=== PATIENT | male | born 1970 | race Caucasian/White ===

== ENCOUNTER 2024-08-31 07:21 | Day surgery (SDC) | payer OTHER, SELFPAY ==
[2024-08-27 10:03] VITALS: BMI 27.5
[2024-08-31 08:08] VITALS: BMI 27.1
--- NOTE | 2024-08-31 08:19 | HO.ANESPROP2 ---
[facility] Past Medical History Medical History Neuropathy GERD (gastroesophageal reflux disease) Depression Asthma Psoriatic arthritis HTN (hypertension) Anemia Diverticulosis Surgical History Surgical History History of excision of mass Hx of knee surgery History of back surgery History of esophagogastroduodenoscopy (EGD) H/O colonoscopy History of Problems with Anesthesia: No Social History Social History Are you a primary respiratory care specialist to a significant other at home: No Patient Tobacco Use Status: Former Tobacco user Tobacco use type: Cigarette Meds Allergies Allergy/AdvReac Type Severity Reaction Status Date / Time banana [Banana] Allergy Mild HIVES Verified 08/31/24 08:06 lisinopril [LISINOPRIL] Allergy Unknown ANGIOEDEMA Verified 08/31/24 08:06 Home Medications ?Medication ?Instructions ?Recorded ?Confirmed ?Last Taken ?Type Dupixent Syringe 08/27/24 08/16/24 History albuterol sulfate 90 mcg/actuation 2 puff inhalation Q4-6H PRN 08/27/24 08/27/24 Unknown History aerosol inhaler (Ventolin HFA) Shortness Of Breath Or Wheezing amlodipine 5 mg tablet 5 mg PO DAILY 08/27/24 08/27/24 Unknown History duloxetine 60 mg capsule,delayed 60 mg PO DAILY 08/27/24 08/27/24 Unknown History release sprinkle gabapentin 300 mg capsule 300 mg PO DAILY 08/27/24 08/27/24 Unknown History metoprolol tartrate 50 mg tablet 50 mg PO DAILY 08/27/24 08/27/24 Unknown History montelukast 10 mg tablet 10 mg PO BEDTIME 08/27/24 08/27/24 Unknown History Exam Height,Weight and Vital Signs: Height 5 ft 8 in Weight 80.739 kg Airway Mallampati Class: III TM Dist: >3cm Neck ROM: Full Loose/Missing/Broken Teeth: No Heart: RRR Lungs: CTA Assessment and Plan Assessment Anesthesia Assessment: Anesthesia Plan Discussed and Chart Reviewed Final Anesthetic Review History of Problems with Anesthesia: No NPO: Yes ASA Class: II Final Preanesthetic Review: Meds/Allgs Chart Reviewed, Consent Obtained/Reviewed and Anes Risks/Benef Reviewed Patient Risk: Low Procedure Risk: Low Anesthetic Plan Anesthetic Plan: MAC: Disposition: Standard PACU
[2024-08-31 08:36] VITALS: BP 136/91; PULSE 110; RESP 14; TEMP 36.7; O2SAT 96
[2024-08-31] MEDS: Lactated Ringers 1,000 ML 80 ML IVCONT (08:39)
--- NOTE | 2024-08-31 08:59 | P.HPSUR_ITS ---
Pre-Procedural Eval Section A - 24 Hr Update-Section A only Date of Service: 08/31/24 Section B - Complete if H&P > 30 days Chief Complaint: screening Details of Present Illness: see h&p no changes Relevant Social History: None Present Medications: None Medical History: No relevant PMH History of Previous Operations: No relevant previous surgery Allergies: Allergies Allergy/AdvReac Type Severity Reaction Status Date / Time banana [Banana] Allergy Mild HIVES Verified 08/31/24 08:06 lisinopril [LISINOPRIL] Allergy Unknown ANGIOEDEMA Verified 08/31/24 08:06 Review of Systems Sugical H&P ROS: Negative: Constitution, Cardiovascular, Respiratory, Neurologic al, Psychiatric, Hem-Onc, Allergic/Immunologic, Gastrointestinal, Genitourinary, Musculoskeletal, Integumentary, Endocrine and Eyes/Ears/Nose/Throat Exam Surgical H&P Exam: Normal: HEENT, Normal: Heart, Normal: Lungs, Normal: Extremities, Normal: Abdomen, Normal: Skin and Normal: Neurological Plan Diagnosis/Plan: Unchanged I have reviewed the history and physical and performed a pertinent physical examination on my patient. No changes have occurred unless specified. Time Spent With Patient Time: Total time managing care of this patient today ____ minutes.
[2024-08-31 09:40] VITALS: BP 111/64; PULSE 107; RESP 18; TEMP 36.2; O2SAT 97
[2024-08-31 09:58] VITALS: BP 121/76; PULSE 88; RESP 18; TEMP 36.2; O2SAT 97
--- NOTE | 2024-08-31 10:12 | OP_ITS ---
DATE OF SERVICE: 08/31/2024 SURGEON: Anthony San MD INDICATIONS: Colon cancer screening. PREOPERATIVE DIAGNOSIS: POSTOPERATIVE DIAGNOSIS: PROCEDURE PERFORMED: Colonoscopy to the terminal ileum with snare polypectomy. ESTIMATED BLOOD LOSS: COMPLICATIONS: ANESTHESIA: Monitored anesthesia care. ASSISTANTS: SPECIMENS: DESCRIPTION OF PROCEDURE: History and physical was performed. The risks and benefits of the procedure were explained to the patient. Informed consent was obtained. The patient was placed in the left lateral decubitus position. A digital rectal exam was performed and was found to be normal. The Olympus pediatric video colonoscope was introduced into the rectum and advanced to the cecum. The cecum was identified by transillumination, palpation, and identification of ileocecal valve. Examination was performed. The scope was removed. He tolerated the procedure well and was taken to recovery in stable condition. FINDINGS: On the ileocecal valve was a 10 mm sessile polyp, which was removed with a snare and recovered via suction and by grasping with the snare and removing from the patient. No other polyps were identified. The quality of the prep was good. There was mild sigmoid diverticulosis. Retroflexed examination showed some small internal hemorrhoids. IMPRESSION: Colon polyp. RECOMMENDATIONS: Follow up with the biopsy results. MD GILDARDO Valencia/PHYLLISL / [id number]
== END 2024-08-31 10:47 | disposition home or self-care (01) ==
PROVIDERS: PCP Family Medicine; Visit Provider Internal Medicine Gastroenterology
PROC: 0DJD8ZZ Inspection of Lower Intestinal Tract, Via Natural or Artificial Opening Endoscopic (ICD-10-PCS; CPT 45378; principal; 2024-08-31 09:10)
DX: Z12.11 Encounter for screening for malignant neoplasm of colon (principal); D12.0 Benign neoplasm of cecum; K57.30 Diverticulosis of large intestine without perforation or abscess without bleeding; K64.8 Other hemorrhoids; K21.9 Gastro-esophageal reflux disease without esophagitis; D64.9 Anemia, unspecified; I10 Essential (primary) hypertension; G62.9 Polyneuropathy, unspecified; R73.9 Hyperglycemia, unspecified; J45.909 Unspecified asthma, uncomplicated; L40.50 Arthropathic psoriasis, unspecified; F32.A Depression, unspecified; Z79.899 Other long term (current) drug therapy; Z88.8 Allergy status to other drugs, medicaments and biological substances; Z98.890 Other specified postprocedural states; Z87.891 Personal history of nicotine dependence
CPT/HCPCS: 45385; 88305; J2003; J2250; J2704

== ENCOUNTER 2024-09-12 02:04 | Inpatient (IN) | payer OTHER, SELFPAY ==
[2024-09-12] VITALS (16 sets, daily range): BP systolic 103–192; BP diastolic 60–103; PULSE 76–125; RESP 16–22; TEMP 36.1–37.8; O2SAT 94–100; BMI 28.1
--- NOTE | ~2024-09-12 | CT_ITS ---
CLINICAL HISTORY: diffuse abd pain, worse epigastric CT abdomen and pelvis with contrast Comparison: None Findings: The lung bases are clear. There is marked pericholecystic edema, possible cholecystitis. Solid organs are within normal limits. No renal stones. No bowel obstruction, pneumoperitoneum, or pneumatosis. Pelvic contents unremarkable. Normal appendix. The bones are intact. IMPRESSION: Possible acute cholecystitis. Clinically appropriate follow-up recommended. This document has been electronically signed by: Pablo Sierra MD on 09/12/2024 06:05:02
--- NOTE | 2024-09-12 02:27 | ECG_ITS ---
Test Reason : abd pain Blood Pressure : */* mmHG Vent. Rate : 73 BPM Atrial Rate : 73 BPM P-R Int : 158 ms QRS Dur : 82 ms QT Int : 402 ms P-R-T Axes : 57 49 48 degrees QTcB Int : 442 ms Normal sinus rhythm Normal ECG When compared with ECG of 03-Dec-2005 07:29, No significant change was found Referred By: Generic ED Physician Electronically Signed By: DANAE STAFFORD MD
[2024-09-12 02:54] LABS: Basophils Absolute Auto 0.1 X10*3/uL (0.0-0.2); Basophils Percent Auto 0.4 % (0-2); Eosinophils Percent Auto 0.2 % (0-4); Hematocrit 44.7 % (42.0-52.0); Hemoglobin 16.2 g/dl (14.0-18.0); Imm Gran Abs Auto 0.12 X10*3/uL (0.00-0.03); Imm Gran Pct Auto 0.7 % (0.0-0.4); Lymphocytes Absolute Auto 0.7 X10*3/uL (1.2-4.9); Lymphocytes Percent Auto 4.1 % (20-40); MANUAL DIFF FLAG NO; Mean Corpuscular HGB Conc 36.2 g/dl (31.0-36.0); Mean Corpuscular Hemoglobin 31.7 pg (27.0-33.0); Mean Corpuscular Volume 87.5 fL (80.0-98.0); Mean Platelet Volume 10.8 fL (9.4-12.4); Monocytes Absolute Auto 1.3 X10*3/uL (0.1-1.2); Monocytes Percent Auto 6.9 % (2-11); Neutrophils Absolute Auto 15.9 x10*3/uL (2.0-8.3); Neutrophils Percent Auto 87.7 % (45-73); Platelet Count 255 X10*3/uL (160-400); Red Blood Count 5.11 X10*6/uL (4.60-5.80); Red Cell Distribution Width 12.2 % (11.0-16.0); White Blood Count 18.1 X10*3/uL (4.8-10.8)
[2024-09-12 03:12] LABS: Troponin-I High Sensitivity 5.9 ng/L (<3.5-35.0)
[2024-09-12 03:15] LABS: Alanine Aminotransferase 22 U/L (0-40); Anion Gap 23 (12-20); Aspartate Amino Transferase 35 U/L (5-37); Bilirubin Direct 0.2 mg/dL (0.0-0.5); Bilirubin Total 1.1 mg/dL (0.0-1.0); Blood Urea Nitrogen 13 mg/dL (9-16); Calcium 10.8 mg/dL (8.4-10.2); Carbon Dioxide 18 mmol/L (22-29); Chloride 102 mmol/L (96-108); Creatinine Clr Calc Pharmacy 111.4; Estimated Glomerular Filt Rate > 60; Glucose Random 174 mg/dL (60-115); Lipase 22 U/L (8-78); Potassium 3.8 mmol/L (3.3-5.1); Sodium 139 mmol/L (135-145)
[2024-09-12 03:30] LABS: Influenza A PCR NEGATIVE (Negative); Influenza B PCR NEGATIVE (Negative); Resp Syncy Virus RNA Qual PCR NEGATIVE (Negative); SARS COV2 PCR INHOUSE NEGATIVE (Negative)
[2024-09-12 03:51] LABS: Alkaline Phosphatase 66 U/L (39-117)
--- OUTSIDE RECORDS SUMMARY | 2024-09-12 04:44 | XMS_ITS ---
Author Organization [facility] Address [address] [place] [address] Care Team Providers Care Drafter Electromechanical Name Role Phone Prince DA SILVA, Pat Primary Care Provider Kelli Tubbs Unavailable [phone] REASON FOR VISIT cx 09/01/24 appt Encounters Encounter Location Date Provider Diagnosis [facility] [address] [place] [address] 08/31/2024 Kelli Wise Plan Of Treatment No Information Progress Notes * Pablo SCOTT RDOB:[birth year] (54 yo M)Acc No.[id number]:08/31/2024 Patient:?Pablo CSOTT :1970???Age:54 Y???Sex:Male Address:[address] [place], [place] [address], [address] * * Date:?
--- OUTSIDE RECORDS SUMMARY | 2024-09-12 04:45 | XMS_ITS | Patient Health Record ---
[facility] [place] Address [address] [facility] [place] [address] Care Team Providers Care Platform Software Engineer Name Role Phone Pat Morrison MD Primary Care Provider Kelli Tubbs Unavailable [phone] Allergies Allergen (clinical drug ingredient) Drug/Non Drug Allergy documented on EMR Reaction Allergy Type Onset Date Status lisinopril Lisinopril Angiodema Drug Allergy Activ e Reason For Referral No Information Medications Medication SIG (Take, Route, Frequency, Duration) Notes Start Date End Date Status Gabapentin 300 MG 1 capsule Orally Twi ce a day for 90 days Active Clobetasol Propionate 0.05 % External for 25 Days Not-Aaron ing Mometasone Furoate 0.1 % External for 30 Days Not-Taking Metoprolol Tartrate 50 MG Oral for 90 Active Omeprazole 20 MG 1 capsule 30 minutes before morning meal Orally Once a day for 30 day(s) Not-Taking DULoxetine HCl 60 MG Oral for 90 Active Qvar RediHaler 80 MCG/ACT Inhalation for 90 Not-Taking amLODIPine Besylate 5 MG Oral for 90 Active Dupixent 300 MG/2ML Subcutaneous for 28 Not-Taking Carisoprodol 350 MG (Schedule IV Drug) O ral for 30 Not-Taking Montelukast Sodium 10 MG 1 tablet Orally Once a day Active Montelukast Sodium 10 MG Oral for 90 Not-Taking Albuterol Sulfate HFA 108 (90 Base) MCG/ACT Inhalation for 25 N ot-Taking Dupixent Active Tacrolimus 0.1 % External for 30 Days Not-Taking traMADol HCl 50 MG Oral for 3 Days Not-Taking Social History Tobacco Use: Social History Observation Description Date Details (start date - stop date) Former Smoker NA - NA Tobacco Use/Smoking Question Answer Notes Are you a: former smoker Additional Findings: Tobacco Non-User Current no n-smoker Alcohol Screen Question Answer Notes Did you have a drink contain ing alcohol in the past year? Yes How often did you have a dri nk containing alcohol in the past year? Monthly or less (1 point) Points 1 Interpretation Negative Tobacco use other than smoking: Question Answer Notes Are you an other tobacco user? No Problems Problem Type SNOMED Code ICD Code Onset Dates Problem Status W/U Status Risk Notes Problem Acquired hammer toe of right foot (7755487601994497) Other hammer toe(s) (acquired), right foot (M20.41) Active confirmed Problem Acquired hammer toe of left foot (5255484946388492) Other hammer toe(s) (acquired), left foot (M20.42) Active confirmed Problem 887822707 Fibromyalgia (M79.7) Active confirmed Problem 608942148 Hallux rigidus of right foot (M20.21) Active confirmed Problem 944254511 Neuropathy (G62.9) Active confirmed Problem Localized, primary osteoarthritis of the ankle and/or foot (236956790) Arthritis of joint of lesser toe, left (M19.072) Active confirmed Problem Localized, primary osteoarthritis of the ankle and/or foot (909124289) Arthritis of joint of lesser toe, right (M19.071) Active confirmed Vital Signs Blood pressure diastolic 80 mm Hg 02/10/2024 Height 5ft8in in 02/10/2024 Blood pressure systolic 120 mm Hg 02/10/2024 Weight 185 lbs 02/10/2024 BMI 28.13 kg/m2 02/10/2024 Encounters Encounter Location Date [facility] [address] [place] [address] 01/06/2024 Kelli Wise Pain in right toe(s) M79.674 ; Other hammer toe(s) (acquired), right foot M20.41 ; Pain in left toe(s) M79.675 ; Other hammer toe(s) (acquired), left foot M20.42 ; Hallux rigidus of right foot M20.21 ; Neuropathy G62.9 ; Pes planus of left foot M21.42 ; Pes planus of right foot M21.41 and Fibromyalgia M79.[address] [address] 02/10/2024 Kelli Wise Other hammer toe(s) (acquired), right foot M20.41 ; Neuropathy G62.9 ; Pain in right toe(s) M79.674 ; Pain in left toe(s) M79.675 ; Other hammer toe(s) (acquired), left foot M20.42 ; Hallux rigidus of right foot M20.21 ; Pes planus of left foot M21.42 ; Pes planus of right foot M21.41 and Fibromyalgia M79.[address] [address] 08/31/2024 Kelli Wise Assessments Encounter Date Diagnosis (ICD Code) Assessment Notes Treatment Notes Treatment Clinical Notes Section Notes 01/06/2024 Other hammer toe(s) (acquired), right foot (ICD-10 - M20.41) 01/06/2024 Pain in right toe(s) (ICD-10 - M79.674) 02/10/2024 Other hammer toe(s) (acquired), right foot (ICD-10 - M20.41) 02/10/2024 Neuropathy (ICD-10 - G62.9) 02/10/2024 Pain in right toe(s) (ICD-10 - M79.674) 01/06/2024 Pain in left toe(s) (ICD-10 - M79.675) 01/06/2024 Other hammer toe(s) (acquired), left foot (ICD-10 - M20.42) 02/10/2024 Pain in left toe(s) (ICD-10 - M79.675) 02/10/2024 Other hammer toe(s) (acquired), left foot (ICD-10 - M20.42) 01/06/2024 Hallux rigidus of right foot (ICD-10 - M20.21) 01/06/2024 Neuropathy (ICD-10 - G62.9) 02/10/2024 Hallux rigidus of right foot (ICD-10 - M20.21) 02/10/2024 Pes planus of left foot (ICD-10 - M21.42) 01/06/2024 Pes planus of left foot (ICD-10 - M21.42) 01/06/2024 Pes planus of right foot (ICD-10 - M21.41) 02/10/2024 Pes planus of right foot (ICD-10 - M21.41) 02/10/2024 Fibromyalgia (ICD-10 - M79.7) 01/06/2024 Fibromyalgia (ICD-10 - M79.7) Plan Of Treatment Pending Test Test Name Order Date X ray : Foot, left 3V 01/06/2024 X ray : Foot, right 3V 01/06/2024 Insurance Providers Payer Name Payer Address Payer Phone Subscriber Number Group Number Insured Name Patient Relationship to Insured Coverage Start Date Coverage End Date [facility] [address] [address] [place] [address] [phone] [id number] Pablo Scott Self - patient is the insured Medical (General) History Medical History History ICD Code Arthritis asthma Back,Hip,and Knee pain Fibromyalgia High blood pressure Numbness Psoriasis/eczema Reflux Transfusions Joint implants/screws Surgical History Surgery Date(Month/Year) knee recronstruction left 1989 knee surgery Right, multiple Arthroscopi c, arthritis 1996/2011/2012 back surgery, L4, L5 2006 Rib Surgery, removal 2005 Hand Surgery Left 2010 right knee replacement 2012 umbilical hernia repair 2018 Cut Mouth eating went for Sutures 03/2020
--- OUTSIDE RECORDS SUMMARY | 2024-09-12 04:45 | XMS_ITS ---
Author Organization [facility] Address [address] [place] [address] Care Team Providers Care Rail Transportation Tabeler Name Role Phone Pat Morrison MD Primary Care Provider Unavailab Anthony Pichardo Jr Unavailable [phone] REASON FOR VISIT screening Encounters Encounter Location Date Provider Diagnosis [facility] [address] [place], [place] [id number] 08/31/2024 Anthony San Jr Colon cancer screening Z12.11 and Colon polyps K63.5 ASSESSMENTS Encounter Date Diagnosis Assessment Notes Treatment Notes Treatment Clinical Notes 08/31/2024 Colon cancer screening (ICD-10 - Z12.11) 08/31/2024 Colon polyps (ICD-10 - K63.5) PLAN OF TREATMENT No Information
--- OUTSIDE RECORDS SUMMARY | 2024-09-12 04:45 | XMS_ITS ---
Author Organization [facility] Address [address] [place] [address] Care Team Providers Care Assistant Press Operator Offset Name Role Phone Pat Morrison MD Primary Care Provider Unavailab Anthony Pichardo Jr Unavailable REASON FOR VISIT pathology Encounters Encounter Location Date Provider Diagnosis [facility] [address] [place] [address] 09/08/2024 Anthony San Jr PLAN OF TREATMENT No Information
--- OUTSIDE RECORDS SUMMARY | 2024-09-12 04:45 | XMS_ITS ---
Author Organization [facility] Address [address] [place] [address] Care Team Providers Care Assistant Product Manager Name Role Phone Prince DA SILVA, Pat Primary Care Provider Kelli Tubbs [phone] Encounters Encounter Location Date Provider Diagnosis [facility] [address] [place] [address] 09/01/2024 Kelli Wise Plan Of Treatment No Information Progress Notes * Pablo SCOTT RDOB:[birth year] (54 yo M)Acc No.[id number]:09/01/2024 Progress Note Patient:?Pablo SCOTT Provider:?Kelli Wise DPM :1970???Age:54 Y???Sex:Male Anton e:09/01/2024 Address:[address] [place] [address] [facility] Pcp:Pat Morrison MD Subjective: * Chief Complaints: * ??? * Medical History:? Objective: * Vitals:? Assessment: Plan: * Treatment: * Images: * The named appointment provid er may or may not be the originator of this progress note, and it is not deemed complete until electronically signed by the appointment provider. Sign off status: Pending * Provider:Denisha Wise DPM Date:? Generated for Tegan serrato/Dayne/eTransmitting on:?09/12/2024 04:45 AM EST
--- OUTSIDE RECORDS SUMMARY | 2024-09-12 04:45 | XMS_ITS ---
[facility] Address [address] [place] [address] Care Team Providers Care Supervisor [employer] Name Role Phone Prince DA SILVA Pat Primary Care Provider Kelli Tubbs Unavailable [phone] Allergies Allergen (clinical drug ingredient) Drug/Non Drug Allergy documented on EMR Reaction Allergy Type Onset Date Status lisinopril Lisinopril Angiodema Drug Allergy Activ e REASON FOR VISIT Pcp-10/11, Pcp-11/08, Painful Toe(s) Medications Medication SIG (Take, Route, Frequency, Duration) Notes Start Date End Date Status Omeprazole 20 MG 1 capsule 30 minutes before morning meal Orally Once a day for 30 day(s) Not-Taking DULoxetine HCl 60 MG Oral for 90 Active Montelukast Sodium 10 MG 1 tablet Orally Once a day Active Gabapentin 300 MG 1 capsule Orally Twi ce a day for 90 days Active Dupixent Active Qvar RediHaler 80 MCG/ACT Inhalation for 90 Not-Taking Dupixent 300 MG/2ML Subcutaneous for 28 Not-Taking Carisoprodol 350 MG (Schedule IV Drug) O ral for 30 Not-Taking Montelukast Sodium 10 MG Oral for 90 Not-Taking Albuterol Sulfate HFA 108 (90 Base) MCG/ACT Inhalation for 25 N ot-Taking Clobetasol Propionate 0.05 % External for 25 Days Not-Aaron ing Mometasone Furoate 0.1 % External for 30 Days Not-Taking Metoprolol Tartrate 50 MG Oral for 90 Active Tacrolimus 0.1 % External for 30 Days Not-Taking traMADol HCl 50 MG Oral for 3 Days Not-Taking amLODIPine Besylate 5 MG Oral for 90 Active Social History Tobacco Use: Social History Observation [...] Are you an other tobacco user? No Vital Signs Blood pressure systolic 120 mm Hg 02/10/20 24 Blood pressure diastolic 80 mm Hg 024 Height 5ft8in in 02/10/2024 Weight 185 lbs 02/10/2024 BMI 28.13 kg/m2 02/10/2024 Encounters Encounter Location Date Provider Diagnosis [facility] [place] [address] [place] [address] 02/10/2024 Kelli Wise Other hammer toe(s) (acquired), right foot M20.41 ; Neuropathy G62.9 ; Pain in right toe(s) M79.674 ; Pain in left toe(s) M79.675 ; Other hammer toe(s) (acquired), left foot M20.42 ; Hallux rigidus of right foot M20.21 ; Pes planus of left foot M21.42 ; Pes planus of right foot M21.41 and Fibromyalgia M79.7 Assessments Encounter Date Diagnosis (ICD Code) Assessment Notes Treatment Notes Treatment Clinical Notes Section Notes 02/10/2024 Other hammer toe(s) (acquired), right foot (ICD-10 - M20.41) 02/10/2024 Neuropathy (ICD-10 - G62.9) 02/10/2024 Pain in right toe(s) (ICD-10 - M79.674) 02/10/2024 Pain in left toe(s) (ICD-10 - M79.675) 02/10/2024 Other hammer toe(s) (acquired), left foot (ICD-10 - M20.42) 02/10/2024 Hallux rigidus of right foot (ICD-10 - M20.21) 02/10/2024 Pes planus of left foot (ICD-10 - M21.42) 02/10/2024 Pes planus of right foot (ICD-10 - M21.41) 02/10/2024 Fibromyalgia (ICD-10 - M79.7) Plan Of Treatment Medication Medication Name Sig Start Date Stop Date Notes Gabapentin 300 MG 1 capsule Orally Twice a day for 90 days Next Appt Details Follow Up: 6 Months, Reason: Progress Notes * Pablo SCOTT RDOB:[birth year] (53 yo M)Acc No.[id number]:02/10/2024 Progress Notes Patient:?Pablo Scott Provider:?Kelli Wise DPM :1970???Age:53 Y???Sex:Male Anton e:02/10/2024 Address:[address] [place] [address] [id number] Pcp:Pat Morrison MD Subjective: * Chief Complaints: * ???Pcp-10/11Pcp-11/08Painful Toe(s) * HPI: ???Toe pain:?Nature:?tenderness throbbing burning numbness.?Location:?2-5 B/L feet; R>L.?Duration:?a year or more.?Onset/Cause:?gradual unknown denies trauma.?Course:?some improvement.?Aggrevated by:?standing/walking job/occupation.?Treatments:?rest/alter normal daily activity, change in shoes, innersoles, Gabapentin 300mg once a day.? * ROS:?General/Constitutional:?Nausea?denies, denies.?Vomiting?denies, denies.?Hunger Thirst?denies, denies.?Loss appetite?denies, denies.?Chills?denies, denies.?Fatigue?denies, denies.?Fever?denies, denies.?Night Sweats denies, denies.?Unexplained weight loss?denies, denies.?Unexplained weight gain?denies, denies.?HEENTM:?Dentures?denies, denies.?Dizziness?denies, denies.?Glasses/contacts?admits, admits.?Retinopathy?denies, denies.?Blurred/double vision?denies, denies.?TMJ?denies, denies.?Discharge/drainage?denies, denies.?Implants?denies, denies.?Sore throat?denies, denies.?Dental implants?denies, denies.?Hard of hearing ?denies, denies.?Difficulty chewing/swallowing/speaking?denies, denies.?Nose bleeds?denies, denies.?Sore mouth?denies, denies.?Respiratory:?On Oxygen?denies, denies.?Pneumonia/pleurisy?denies, denies.?Bronchitis?denies, denies.?Emphysema?denies, denies.?Coughing?denies, denies.?Cough blood?denies, denies.?Shortness of breath?denies, denies.?Wheezing?denies, denies.?Cardiovascular:?Pacemaker?denies, denies.?MVP?denies, denies.?WPW?denies, denies.?CHF?denies, denies.?Heart attack?denies, denies.?Septal defect?denies, denies.?Rapid beat?denies, denies.?Chest pain ?denies, denies.?Atrial Fib.?denies, denies.?Murmur/Palpitations?denies, denies.?Gastrointestinal:?Hemorrhoids?denies, denies.?Stomach/Abdominal pain?denies, denies.?Dark blood stool?denies, denies.?Irritable bowel ?denies, denies.?Constipation?denies, denies.?Diarrhea?denies, denies.?Hematology:?Swelling?denies, denies.?Clots?denies, denies.?Varicose Veins?denies, denies.?Bruising?denies, denies.?Bleeding problem?denies, denies.?Genitourinary:?Blood urine?denies, denies.?Frequent/Painfu/urination/bladder control?denies, denies.?Kidney stones?denies, denies.?Infection (UTI)?denies, denies.?Nephropathy?denies, denies.?sex trans dis (STD)?denies, denies.?Prostate?denies, denies.?Musculoskeletal:?Hammertoes?admits, admits.?Bunions?admits, admits.?Back Pain?denies, denies.?Muscle Cramps/ Resting?denies, denies.?Muscle cramps / walking?denies, denies.?Generalized aches and pains?admits, admits.?Weakness?denies, denies.?Integ.:?Roy?denies, denies.?Scars?denies, denies.?Corns/calluses?denies, denies.?Ingrown nails?denies, denies.?Painful nails?denies, denies.?Open Sores?denies, denies.?Rashes?denies, denies.?Neurologic:?Difficulty sleeping?denies, denies.?Brain disorder?denies, denies.?Numbness?admits, admits.?Balance trouble?denies, denies.?Confusion?denies, denies.?Fainting/blackouts?denies, denies.?Tingling?admits, denies.?Tremors?denies, denies.? * Medical History:? * Surgical History:?knee recro nstruction left 1989knee surgery Right, multiple Arthroscopic, arthritis 1996/2011/2013back surgery, L4, L5 2006Rib Surgery, removal 2005Hand Surgery Left 2010right knee replacement 2013umbilical hernia repair 2019Cut Mouth eating went for Sutures 03/2020 * Hospitalization/Major Diagno stic Procedure:?Denies Past Hospitalization * Family History:?Mother: juanita eaton, diagnosed with Unspecified essential hypertension.?Father: alive, foot problems.?Maternal Grand Mother: diagnosed with Other malignant neoplasm of unspecified site. Siblings: diagnosed with Family history of arthritis.? Foot Problems: Father. * Social History:?Tobacco Use:?Tobacco Use/Smoking?Are you a:?former smoker ?Additional Findings: Tobacco Non-User?Current non-smoker ?Tobacco use other than smoking?Are you an other tobacco user??No ???Drugs/Alcohol:?Drugs?Have you used drugs other than those for medical reasons in the past 12 months??No ?Alcohol Screen?Did you have a drink containing alcohol in the past year??Yes ?How often did you have a drink containing alcohol in the past year??Monthly or less (1 point) ?Points?1 ?Interpretation?Negative ???Miscellaneous:?Caffeine: yes, frequency:, 3 cups per day. ?Children: yes, 2. ?Exercise: yes, work. ?Marital status: . 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 * Medications:?TakingDupixent Montelukast Sodium 10 MG Tablet 1 tablet Orally Once a dayDULoxetine HCl 60 MG Capsule Delayed Release Particles Oral amLODIPine Besylate 5 MG Tablet Oral Metoprolol Tartrate 50 MG Tablet Oral Gabapentin 300 MG Capsule 1 capsule Orally Once a day at nightTaking Dupixent Taking Montelukast Sodium 10 MG Tablet 1 tablet Orally Once a dayTaking DULoxetine HCl 60 MG Capsule Delayed Release Particles Oral Taking amLODIPine Besylate 5 MG Tablet Oral Taking Metoprolol Tartrate 50 MG Tablet Oral Taking Gabapentin 300 MG Capsule 1 capsule Orally Once a day at nightNot-Taking/PRNClobetasol Propionate 0.05 % Solution External Mometasone Furoate 0.1 % Ointment External Tacrolimus 0.1 % Ointment External traMADol HCl 50 MG Tablet Oral Albuterol Sulfate HFA 108 (90 Base) MCG/ACT Aerosol Solution Inhalation Carisoprodol 350 MG Tablet (Schedule IV Drug) Oral Montelukast Sodium 10 MG Tablet Oral Qvar RediHaler 80 MCG/ACT Aerosol Breath Activated Inhalation Dupixent 300 MG/2ML Solution Prefilled Syringe Subcutaneous Omeprazole 20 MG Capsule Delayed Release 1 capsule 30 minutes before morning meal Orally Once a dayMedication List reviewed and reconciled with the patientNot-Taking/PRN Clobetasol Propionate 0.05 % Solution External Not-Taking/PRN Mometasone Furoate 0.1 % Ointment External Not-Taking/PRN Tacrolimus 0.1 % Ointment External Not-Taking/PRN traMADol HCl 50 MG Tablet Oral Not-Taking/PRN Albuterol Sulfate HFA 108 (90 Base) MCG/ACT Aerosol Solution Inhalation Not-Taking/PRN Carisoprodol 350 MG Tablet (Schedule IV Drug) Oral Not-Taking/PRN Montelukast Sodium 10 MG Tablet Oral Not-Taking/PRN Qvar RediHaler 80 MCG/ACT Aerosol Breath Activated Inhalation Not-Taking/PRN Dupixent 300 MG/2ML Solution Prefilled Syringe Subcutaneous Not-Taking/PRN Omeprazole 20 MG Capsule Delayed Release 1 capsule 30 minutes before morning meal Orally Once a dayMedication List reviewed and reconciled with the patient * Allergies:?Lisinopril: Angio demayes[Allergies Verified] Objective: * Vitals:?Ht: 5ft8in, Wt:185, BMI:28.13, Shoe size: 12-13, BP:120/80 mm Hg, Ht-cm: 172.72 cm, Wt-k.91 kg. * Examination: ???General Examination: ?GENERAL APPEARANCE:?Reveals a pleasant, alert, well-nourished, well- developed, well hydrated individual, who demonstrates proper attention to hygiene/body habitus, and is in no acute distress, Pt serves as own?historian for office visit today.?ORIENTED:?person, place, and time.?Neurological: ?SENSORY:? Neurological exam demonstrates reduced light touch sensation reduced sharp/dull pin prick discrimination reduced vibration sensation reduced proprioception sensation in a stocking fashion plantar aspects 5.07 monofilament test performed at plantar aspects of 5 varied sites per foot shows sensation reduced B/L Pt relates burning paresthesia hyperesthesia shooting/radiating sensation Forefoot B/L.?Vascular: ?DP PULSES:?3/4, B/L.?PT PULSES:?3/4, B/L.?CAPILLARY FILL TIME:?immediate, all digits, B/L.?SKIN TEMPERTURE GRADIENT OF THE LOWER EXTERMITIES:?warm to cool, proximal to distal, B/L.?HAIR GROWTH/TEXTURE/ELASTICITY/TURGOR:?normal, B/L.?PIGMENTATION:?normal, B/L.?EDEMA:?absent, B/L.?Dermatologic: ?SKIN FINDINGS:?Skin exam reveals normal texture, elasticity, and turgor. There are no masses. The interspaces are clear.?Orthopedic: ?MUSCLE STRENGTH:?5/5 all groups in a symmetrical fashion , B/L.?GAIT ABNORMALITY:? Pronated abducted angle and base of gate.?FOOT MORPHOLOGY:? Pes Planus structure Semi-rigid B/L.?BUNION:? Dorso-Medially prominent 1st MPJ Limited 1st MPJ Dorsal ROM RIGHT.?DIGITAL DEFORMITIES:? Digital contracture, PIPJ, 2-5 B/L, reducible with WB, or to push-up test, no over, nor underlapping.?FOOTWEAR:? shoe gear properties exacerbate patients foot/toe deformity.? Assessment: * Assessment: 1.?Other hammer toe(s) (acqu ired), right foot - M20.41?2.?Neuropathy - G62.9 (Primary)?3.?Pain in right toe(s) - M79.674?4.?Pain in left toe(s) - M79.675?5.?Other hammer toe(s) (acquired), left foot - M20.42?6.?Hallux rigidus of right foot - M20.21?7.?Pes planus of left foot - M21.42?8.?Pes planus of right foot - M21.41?9.?Fibromyalgia - M79.7? Plan: * Treatment: * Procedure Codes:? * Preventive Medicine:? ??Counseling:?Discussion:?-13: Office or other outpatient visit for the evaluation and management of an established patient, which required a medically appropriate history and/or examination and LOW level of DECISION MAKING for: 1 STABLE ACUTE UNCOMPLICATED PROBLEM, 2 OR MORE MINOR PROBLEMS, OR 1 STABLE CHRONIC PROBLEM, THAT POSE(S) A LOW RISK FOR MORBIDITY/MORTALITY. The visit on the day of the encounter encompassed interpreting the data and educating the patient as to the nature of their condition, treatment options available according to their individual PMH, meds, allergies, and overall health/living conditions, as well as any potential risks or complications that may occur from a failure to adhere to, and participate in, the recommended course of therapy. The discussion included a complete verbal, and/or written explanation of the examination results, any x-rays taken, the proposed diagnosis, and outline of the treatment plan. A schedule for future care needs was also explained. The patient verbalized an understanding of the instructions at this time and agreed to be an active participant in their treatment. If the patient should think of any questions or concerns after the visit, I have encouraged the patient to call the office.?Consult:?The Pt. was counseled on the diagnosis, treatment options, and the need for a, PCP Consult for referral to Neurology.?Digital Surgery:?Digital surgery was discussed with the patient, including the risks of surgery(below), vs not having surgery (persistent pain, deformity, risk for skin ulceration/infection, loss of toe), the potential surg complications, the anesthesia, and the usual post-op course. No guarentees were given. We discussed the potential procedure complications including, but not limited to: pain, swelling, bleeding, scarring, numbness, infection, delayed/non healing, floppy/unstable/shorthened toe, recurrence, failure of the procedure, overcorrection leading to plantarflexed/downward positioned toe, recurrence, need for further surgery, as well as the possibility for loss of the toe itself. We discussed the use of local anesthesia, and the usual post-op course for healing. No guarentees were given. The patient verbally indicated a full understanding of the above conversation, and any other of their questions were answered to their satisfaction. Alternatives to the procedure were also discussed, including conservative care. I also discussed the usual post-operative course and gave no guarantees regarding outcome.?Digital Treatment:?I explained to the patient the possible etiologies of Hammertoes, including genetics/foot type/shoegear/activity level/exercise routine and the risks/benefits of all the different treatment options for pain including: No treatment at all, Rest, Ice, New/supportive/wider/deeper Shoegear, Digital Padding/Strapping/Taping/Bracing/Gel protective sleeves, Foot/Ankle AFO Bracing, Stretching exercises, Deep Tissue Massage, Arch support/shoe inserts with splay metatarsal padding, and Custom orthoses. I insisted that any digital devices be removed daily and not worn overnight for safety. The patient is to carefully examine the toes daily for any skin irritation while using any splinting or padding device. The advantages and disadvantages of each option were discussed and the patients questions re: shoegear, padding, custom vs prefabricated inserts, activity level, and consistency in home treatment regimens for optimal success were answered to their verbally confirmed satisfaction.?Neuritis/Neuropathy:?The patient was counseled on the diagnosis, possible etiologies (including mechanical stress, injury, entrapment, chemotherapy, diabetes, vertebral disk herniation if hx), treatment options, and importance for adherence to recommendations in order to address the patients Neuritis/Neuropathy. The advantages and disadvantages re: Accomidative mechanical support/offloading, Topical vs PO analgesics including aspercream/Voltaren gel/Lidoderm patches/Neurontin/Lyrica along with their potential side effects were discussed with the patient to their satisfaction. Also discussed the use of therapeutic injectable cortisone if needed. Surgical treatment, if considered an option, was discussed as well. If surgery is warranted, we discussed the potential successful outcomes as well as the possible complications such as failure, painful scar, permanent tingling/numbness/neuralgea/or intractable pain. Patient questions re: medication use, dosage, and possible side effects and drug interactions were reviewed and the answers to each understood. If the condition worsens, the patient was instructed to contact the office for an appointment. The patient verbally confirmed a full understanding of the above, Discussed Neurontin, Discussed that neuropathy could be related to back arthritis/injury, recommend follow up with PCP.?Orthotics:?I explained to the patient the benefits of OT use. I explained that orthoses are medically necessary to decrease the foot pain through proper mechanical control, support of their foot.?Shoe Gear Counseling:?The patient and I reviewed the types of shoes they should be wearing. My recommendation included obtaining a well-fitted shoe with a good supportive, non-foldable nor twistable sole, plenty of toe/room for the forefoot, and proper arch support. Based on todays examination, I recommended the patient look for new shoes, by having their feet professionally measured. We discussed that generally the best time of the day for a shoe fitting is the afternoon. Different shoes types and brands to best match the patients occupation and vocation were discussed. Specific brand selection will be up to the patient, their individual foot condition/deformities, and fit. The patient and I reviewed the standard new shoe break in period by wearing them for a few hours a day while checking for redness or sores as wear time is increased. The patient verbally confirmed to understanding the information discussed.? * Follow Up:?6 Months * Images: * Sign off status: Completed true * Provider:?Kelli Wise DPM Date:? Generated for Tegan serrato/Dayne/Meg on:?09/12/2024 04:45 AM EST History and Physical Notes * HPI (History of Present Illness) Category Sub-Category Detail Notes Category Not es Toe pain Nature: tenderness throbbing burning numbness Location: 2-5 B/L feet; R>L Duration: a year or more Onset/Cause: gradual unknown lizzeth es trauma Course: some improvement Aggravated by: standing/walking job /occupation Treatments: rest/alter normal da rizwana activity, change in shoes, innersoles, Gabapentin 300mg once a day Examination Category Sub-Category Detail Notes Category Not es Neurological SENSORY: Neurological exa m demonstrates reduced light touch sensation reduced sharp/dull pin prick discrimination reduced vibration sensation reduced proprioception sensation in a stocking fashion plantar aspects 5.07 monofilament test performed at plantar aspects of 5 varied sites per foot shows sensation reduced B/L Pt relates burning paresthesia hyperesthesia shooting/radiating sensation Forefoot B/L Dermatologic SKIN FINDINGS: Skin exam reveal s normal texture, elasticity, and turgor. There are no masses. The interspaces are clear Orthopedic GAIT ABNORMALITY: Pronated abduc hoang angle and base of gate FOOT MORPHOLOGY: Pes Planus structure Semi-rigid B/L BUNION: Dorso-Medially promi nent 1st MPJ Limited 1st MPJ Dorsal ROM RIGHT FOOTWEAR: shoe gear properties exacerbate patients foot/toe deformity DIGITAL DEFORMITIES: Digital contracture , PIPJ, 2-5 B/L, reducible with WB, or to push-up test, no over, nor underlapping MUSCLE STRENGTH: 5/5 all groups in a symmetrical fashion , B/L General Examination GENERAL APPEARANCE: Reveals a pleasant, alert, well- nourished, well-developed, well hydrated individual, who demonstrates proper attention to hygiene/body habitus, and is in no acute distress, Pt serves as own historian for office visit today ORIENTED: person, place, and t yfn Vascular DP PULSES (B): 3/4, B/L PT PULSES (B): 3/4, B/L CAPILLARY FILL TIME: immediate, all digi ts, B/L TEMPERTURE GRADIENT (C): warm to cool, p roximal to distal, B/L TROPHIC CONDITION-TEXTURE/ELASTICITY/TURGOR/HAIR GROWTH (B): normal, B/L EDEMA (C): absent, B/L PIGMENTATION: normal, B/L
--- OUTSIDE RECORDS SUMMARY | 2024-09-12 04:45 | XMS_ITS | Patient Health Record ---
Author Organization [facility] Address [address] [place] [address] Care Team Providers Care Poultry Trimmer Name Role Phone Prince DA SILVA, Pat Primary Care Provider Anthony Benitez Jr Unavailable ALLERGIES Allergen (clinical drug ingredient) Drug/Non Drug Allergy documented on EMR Reaction Allergy Type Onset Date Status lisinopril Lisinopril Unknown Drug Allergy Activ e RESULTS Component Value Reference Range Notes Pathology Reviewed date:09/08/2024 07:56:36 AM Interpretation: Performing Lab:[facility], [address] [place] [id number] Notes/Report: REASON FOR REFERRAL No Information MEDICATIONS Medication SIG (Take, Route, Frequency, Duration) Notes Start Date End Date Status Gabapentin 300 MG Oral for 90 Active Dupixent 300 MG/2ML Subcutaneous for 28 Active DULoxetine HCl 60 MG Oral for 90 Active MiraLax (colon prep) 17 GM/SCOOP mixed with Gatorade or Crystal Light Orally begin at 5:00 p.m. the day before the procedure for 1 day 07/28/2024 Active Montelukast Sodium 10 MG Oral for 90 Active Metoprolol Tartrate 50 MG Oral for 90 Active Albuterol Sulfate HFA 108 (90 Base) MCG/ACT Inhalation for 25 Activ e amLODIPine Besylate 5 MG Oral for 90 Active SOCIAL HISTORY Tobacco Use: Social History Observation Description Date Details (start date - stop date) Former Smoker NA - NA Sex Assigned At : Social History Observation Description Sex Assigned At Unknown Tobacco Use/Smoking Question Answer Notes Patient is a former smoker How long has it been since you last smoked? > 10 years Alcohol Screen Question Answer Notes Did you have a drink contain ing alcohol in the past year? Yes How often did you have a dri nk containing alcohol in the past year? 2 to 4 times a month (2 points) How many drinks did you have on a typical day when you were drinking in the past year? 1 or 2 drinks (0 point) How often did you have 6 or more drinks on one occasion in the past year? Never (0 point) Points 2 Interpretation Negative PROBLEMS Problem Type ICD Code Onset Dates Problem Status W/U Status Risk SNOMED Code Notes Problem Colon cancer screening (Z12.11) Active confirmed 763406628 Problem Gastroesophageal reflux disease with esophagitis without hemorrhage (K21.00) Active confirmed 871958618 VITAL SIGNS Blood pressure diastolic 00 mm Hg 07/28/2024 Height 5 ft 8 in in 07/28/2024 Blood pressure systolic 00 mm Hg 07/28/2024 Weight 181 lbs 07/28/2024 BMI 27.52 kg/m2 07/28/2024 Encounters Encounter Location Date Provider Diagnosis [facility] [address], [place] [id number] 08/31/2024 Anthony San Jr Colon cancer screening Z12.11 and Colon polyps K63.5 [facility] [address] [place] [phone] 07/28/2024 Anthony San Jr Colon cancer screening Z12.11 and Gastroesophageal reflux disease with esophagitis without hemorrhage K21.00 [facility] [address] [facility] [place] [phone] 09/08/2024 Anthony San Jr ASSESSMENTS Encounter Date Diagnosis Assessment Notes Treatment Notes Treatment Clinical Notes 08/31/2024 Colon cancer screeni ng (ICD-10 - Z12.11) 08/31/2024 Colon polyps (ICD-10 - K63.5) 07/28/2024 Colon cancer screeni ng (ICD-10 - Z12.11) Colonoscopy material was printed 07/28/2024 Gastroesophageal reflux disease with esophagitis without hemorrhage (ICD-10 - K21.00) PLAN OF TREATMENT Future Test Test Name Order Date COLONOSCOPY 07/28/2024 Insurance Providers Payer Name Payer Address Payer Phone Subscriber Number Group Number Insured Name Patient Relationship to Insured Coverage Start Date Coverage End Date R [address] [address] [place] [address] [id number] ROSALIA PERALTA Self - patient is the insured MEDICAL (GENERAL) HISTORY Medical History History ICD Code Hypertension Psoriatic arthritis Asthma Gastroesophageal reflux disease Depression Elevated blood sugar Neuropathy Surgical History Surgery Date(Month/Year) Back surgery Knee surgery Rib excision, pathology benign
--- NOTE | 2024-09-12 05:25 | ED.ABDPAIN ---
HPI - Abdominal Pain General Chief Complaint: Abdominal Pain Stated Complaint: ABDOMINAL PAIN Time Seen by Provider: 09/12/24 05:18 Source: patient Mode of arrival: ambulatory Limitations: no limitations History of Present Illness ED Provider: Dr. Galina De Jesus HPI narrative: Patient comes to the emergency room complaining of epigastric pain, nausea vomiting diarrhea starting approximately 12 hours ago. Patient was given Zofran and aspirin by EMS. Patient complaining of diffuse abdominal pain but worse in the epigastric area. Related Data Home Medications ?Medication ?Instructions ?Recorded ?Confirmed Dupixent Syringe 08/27/24 albuterol sulfate 90 mcg/actuation 2 puff inhalation Q4-6H PRN 08/27/24 08/27/24 aerosol inhaler (Ventolin HFA) Shortness Of Breath Or Wheezing amlodipine 5 mg tablet 5 mg PO DAILY 08/27/24 08/27/24 duloxetine 60 mg capsule,delayed 60 mg PO DAILY 08/27/24 08/27/24 release sprinkle gabapentin 300 mg capsule 300 mg PO DAILY 08/27/24 08/27/24 metoprolol tartrate 50 mg tablet 50 mg PO DAILY 08/27/24 08/27/24 montelukast 10 mg tablet 10 mg PO BEDTIME 08/27/24 08/27/24 Allergies Allergy/AdvReac Type Severity Reaction Status Date / Time banana [Banana] Allergy Mild HIVES Verified 09/12/24 02:25 lisinopril [LISINOPRIL] Allergy Unknown ANGIOEDEMA Verified 09/12/24 02:25 Review of Systems Review of Systems Constitutional : No Weight loss, No Fever, No Chills, No Night Sweats, No Fatigue, No Malaise ENT/Mouth : No Hearing loss, No Ear Pain, No Nasal Congestion, No Sinus Pain, No Hoarseness, No sore throat, No Rhinorrhea, No Swallowing Difficulty Eyes: No Eye Pain, No Swelling, No Redness, No Foreign Body, No Discharge, No Vision Changes Cardiovascular : No Chest Pain, No SOB, No Dyspnea on Exertion, No Orthopnea, No Edema, No Palpitations Respiratory : No Cough, No Sputum, No Wheezing, No Smoke Exposure, No Dyspnea Gastrointestinal : Complaining of nausea vomiting, 1 episode of diarrhea, complaining of severe diffuse abdominal pain but much worse in the epigastric area Genitourinary : no irregular bleeding, No Dysuria, No Urinary Frequency, No Hematuria, No Urinary Incontinence, No Urgency, No Flank Pain, No Urinary Flow Changes, No Hesitancy Musculoskeletal : No joint pain, No Myalgias, No Joint Swelling Skin : No Skin Lesions, No rash Neuro : No Weakness, No Numbness, No Paresthesias, No Loss of Consciousness, No Dizziness, No Headache Psych : No Anxiety/Panic, No Depression, No SI/HI/AH/VH, No Social Issues, Heme/Lymph: No Bruising, No Bleeding,No Lymphadenopathy Endocrine : No Polyuria, No Polydipsia, No Temperature Intolerance [facility] Past Medical History Medical History Neuropathy GERD (gastroesophageal reflux disease) Depression Asthma Psoriatic arthritis HTN (hypertension) Anemia Diverticulosis Surgical History History of excision of mass Hx of knee surgery History of back surgery History of esophagogastroduodenoscopy (EGD) H/O colonoscopy Social History Social History Are you a primary reservoir caretaker to a significant other at home: No Alcohol intake: never Patient Tobacco Use Status: Former Tobacco user Tobacco use type: Cigarette Smoked in Last 30 Days: No Substance Use Type: Marijuana Substance Use Frequency: Daily Last Used Substance: Hours (ago) Advance Directives: No Advance Directives Information Provided: Yes Do you have a plan to hurt others: No Plan Physical Exam ED Vital Signs: Vital Signs - 24 hr 09/12/24 02:21 09/12/24 02:53 09/12/24 06:01 Temperature 98.7 F 97.7 F 98.5 F Pulse Rate 87 88 102 H Respiratory Rate 22 H 22 H 22 H Blood Pressure 192/103 H 177/92 H 188/102 H Pulse Oximetry 100 100 99 Oxygen Delivery Method Room Air Room Air Room Air BMI result Body Mass Index 28.1 Const Other: Appearance: Alert. Oriented X3. Very uncomfortable Eyes: Pupils equal, round and reactive to light. ENT: Pharynx normal. Neck: Normal inspection. Neck supple. No lymph nodes noted. No crepitus CVS: Normal heart rate and rhythm. Pulses normal. Normal S1 and S2 Respiratory: No respiratory distress. Breath sounds normal. No Wheezing. No rales Abdomen: Soft, distended, diffuse pain to palpation much worse in the epigastric area, positive rebound Skin: Skin warm and dry. Normal skin color. Normal skin turgor. Extremities: No lower extremity edema. No Lacerations. No Rash Neuro: Oriented X 3. No motor deficit. No sensory deficit. Moving all extremities. No slurred speech. CN 2 through 12 grossly intact Psych: calm, cooperative, normal affect Course Course Course Narrative: Patient receiving IV fluids now, morphine, IV fluids CT scan pending Medical Decision Making Medical Decision Making [facility] Narrative: My interpretation of labs: Patient's white blood cell count 18.1 chemistry within normal limits, normal lipase, anion gap open at 23, LFTs normal, serology negative for influenza COVID and RSV My interpretation of CT scan, acute cholecystitis. Radiology report, marked pericholecystic edema Patient is still very uncomfortable despite pain medications, more pain meds have been ordered. Lactic acid and blood cultures pending, no fever, no episodes of hypotension. Patient received IV fluids, IV antibiotics I discussed the patient with Dr. Saravia, patient being admitted for acute cholecystitis, NPO, likely to go to OR today Differential Diagnosis Differential Diagnoses: The differential diagnosis associated with the presentation includes (Gastritis, peptic ulcer disease, perforation, pancreatitis) Admission/Observation Consideration of admission/observation: Escalation of care including admission/observation considered (Given patient's initial presentation and amount of discomfort, admission has been considered) Consult Healthcare Provider Management of the patient was discussed with: Music Rehabilitation Therapist Lab Data [facility] Lab Attestation statement: I reviewed the patient's lab results. 09/12/24 02:49 09/12/24 02:49 Labs: Lab Results 09/12/24 Range/Units 02:49 WBC 18.1 H (4.8-10.8) X10*3/uL RBC 5.11 (4.60-5.80) X10*6/uL Hgb 16.2 (14.0-18.0) g/dl Hct 44.7 (42.0-52.0) % MCV 87.5 (80.0-98.0) fL MCH 31.7 (27.0-33.0) pg MCHC 36.2 H (31.0-36.0) g/dl RDW 12.2 (11.0-16.0) % Plt Count 255 (160-400) X10*3/uL MPV 10.8 (9.4-12.4) fL Immature Gran % (Auto) 0.7 H (0.0-0.4) % Neut % (Auto) 87.7 H (45-73) % Lymph % (Auto) 4.1 L (20-40) % [place] % (Auto) 6.9 (2-11) % Eos % (Auto) 0.2 (0-4) % Baso % (Auto) 0.4 (0-2) % Lymph # (Auto) 0.7 L (1.2-4.9) X10*3/uL [place] # (Auto) 1.3 H (0.1-1.2) X10*3/uL Eos # (Auto) 0.0 (0.0-0.4) X10*3/uL Baso # (Auto) 0.1 (0.0-0.2) X10*3/uL Abs Immat Gran (auto) 0.12 H (0.00-0.03) X10*3/uL Absolute Neuts (auto) 15.9 H (2.0-8.3) x10*3/uL Absolute Nucleated RBC 0.000 (0.0-0.012) X10*3/uL Nucleated RBC % (auto) 0.0 (0.0-0.2) /100WBC Sodium 139 (135-145) mmol/L Potassium 3.8 (3.3-5.1) mmol/L Chloride 102 (96-108) mmol/L Carbon Dioxide 18 L (22-29) mmol/L Anion Gap 23 H (12-20) BUN 13 (9-16) mg/dL Creatinine 0.79 (0.5-1.4) mg/dL Estim Creat Clear Calc 111.4 Estimated GFR > 60 Random Glucose 174 H (60-115) mg/dL Calcium 10.8 H (8.4-10.2) mg/dL Total Bilirubin 1.1 H (0.0-1.0) mg/dL Direct Bilirubin 0.2 (0.0-0.5) mg/dL AST 35 (5-37) U/L ALT 22 (0-40) U/L Alkaline Phosphatase 66 (39-117) U/L Troponin I High Sens 5.9 (<3.5-35.0) ng/L Total Protein 9.0 H (6.5-8.0) g/dL Albumin 5.0 (3.5-5.0) g/dL Lipase 22 (8-78) U/L Influenza Type A (PCR) NEGATIVE (Negative) Influenza Type B (PCR) NEGATIVE (Negative) RSV RNA Qual (PCR) NEGATIVE (Negative) SARS-CoV-2 RNA (RT-PCR) NEGATIVE (Negative) Independent Interpretation I performed an independent interpretation of an: CT Scan Radiology Impression Discussion of test interpretation with radiology: I have reviewed the radiologist's reading. Radiologist Impression: The lung bases are clear. There is marked pericholecystic edema, possible cholecystitis. Solid organs are within normal limits. No renal stones. No bowel obstruction, pneumoperitoneum, or pneumatosis. Pelvic contents unremarkable. Normal appendix. The bones are intact. IMPRESSION: Possible acute cholecystitis. Clinically appropriate follow-up recommended. Medications Administered Generic Name Dose Route Start Last Admin Trade Name Freq PRN Reason Stop Dose Admin Sodium Chloride 1,000 mls @ 999 mls/hr 09/12/24 05:23 09/12/24 05:54 Ns IVCONT 09/12/24 06:23 999 mls/hr .Q1H1M ONE Administration Discontinued Medications Generic Name Dose Route Start Last Admin Trade Name Freq PRN Reason Stop Dose Admin Iohexol 85 ml 09/12/24 05:42 09/12/24 05:44 Iohexol 350 Mg/Ml 100 Ml Infus..Btl IV 09/12/24 05:43 85 ml ONCE ONE Administration Morphine Sulfate 4 mg 09/12/24 05:23 09/12/24 05:53 Morphine Sulfate 4 Mg/Ml Cartridge IVPUSH 09/12/24 05:24 4 mg ONCE ONE Administration Protocol Ondansetron HCl 4 mg 09/12/24 05:23 09/12/24 05:53 Ondansetron Hcl 4 Mg/2 Ml Vial IVPUSH 09/12/24 05:24 4 mg ONCE ONE Administration Critical Care Time Critical Care Time Critical Care Time: Yes Total Critical Care Time: 60 Attestation: I have personally provided critical care time. Time includes review of lab data, radiology results, discussion with consultants, and monitoring for potential decompensation. Intervention performed as documented. Discharge Plan Discharge Clinical Impression: Acute cholecystitis Patient Disposition: Admitted As Inpatient Prescriptions: No Action amlodipine 5 mg Tablet 5 mg PO DAILY metoprolol tartrate 50 mg Tablet 50 mg PO DAILY gabapentin 300 mg Capsule 300 mg PO DAILY montelukast 10 mg Tablet 10 mg PO BEDTIME albuterol sulfate [Ventolin HFA] 90 mcg/actuation Hfa Aerosol Inhaler 2 puff INHALATION Q4-6H PRN (Reason: Shortness Of Breath Or Wheezing) duloxetine 60 mg Capsule, Delayed Rel Sprinkle 60 mg PO DAILY Dupixent Syringe Print Language: Kinyarwanda
[2024-09-12] MEDS: iohexoL 350 MG/ML 100 ML INFUS..BTL 85 ML IV (05:44)
[2024-09-12] MEDS: ondansetron HCL 4 MG/2 ML VIAL IVPUSH ×2 (05:53→19:49)
[2024-09-12] MEDS: Morphine Sulfate 4 MG/ML CARTRIDGE IVPUSH (05:53)
[2024-09-12] MEDS: 0.9 % Sodium Chloride 1,000 ML 999 ML IVCONT (05:54)
[2024-09-12] MEDS: Piperacillin Sodium/Tazobactam 3.375 GM in 0.9 % Sodium Chloride 50 ML IV ×4 (06:09→23:35)
[2024-09-12 06:30] LABS: Lactic Acid 3.4 mmol/L (0.5-2.0)
--- NOTE | 2024-09-12 07:14 | PC.NURSE ---
sepsis not called for pt. fluids given Iv abx infusing
[2024-09-12 08:07] LABS: Reflex Lactate? Lactic Acid Added
[2024-09-12] MEDS: HYDROmorphone HCl 1 MG/ML SYRINGE IVPUSH ×3 (08:28→21:32)
[2024-09-12 08:47] LABS: ~Lactic Acid-LAB USE ONLY 2.2 mmol/L (0.5-2.0)
--- NOTE | 2024-09-12 09:01 | PHA.MEDREC ---
Pharmacy Consult ? Medication Reconciliation Pharmacy has completed the medication reconciliation. Spoke to patient at bedside, able to name all of his medications. Noted he is taking Dupixent and was due yesterday 09/11, however leaving unconfirmed bc patient stated he will take it when he goes back home, does not want it brought in.
[2024-09-12 09:05] LABS: Appearance Urine Clear; Color Urine Yellow; Glucose Urine UA Negative (Negative); Leukocyte Esterase Urine Negative (Negative); Nitrite Urine Negative (Negative); PH 7.5 (5.0-9.0); Specific Gravity - Urine >= 1.030 (1.005-1.025); UMIC TRIGGER UACC YES; Urine Blood Trace (Negative); Urine Ketones 80 mg/dL (Negative); Urine Protein 30 (1+) mg/dL (Neg-Trace)
[2024-09-12 09:10] LABS: Bacteria Urine None Seen (None Seen); Hyaline Casts Urine 0-2 /LPF (0-2); Squamous Epithelial Cell Urine 0-2 /HPF (0-2); WBC Urine 0-5 /HPF (0-5)
[2024-09-12] MEDS: 0.9 % Sodium Chloride 1,000 ML 100 ML IVCONT ×2 (09:29→17:42)
[2024-09-12 10:22] LABS: Reflex Lactate? 2 Y
[2024-09-12 10:55] LABS: ~Lactic Acid-LAB USE ONLY 2.4 mmol/L (0.5-2.0)
--- NOTE | 2024-09-12 12:03 | P.HPGS_ITS ---
History of Present Illness History of Present Illness Date of Service: 09/12/24 Chief complaint: ABDOMINAL PAIN Narrative: Pablo Scott is a 54 year old male who comes into the emergency room complaining of pain which started in his neck moving down to his epigastric area now a little more to the right side. It has started the day before and he went to work and worked yesterday but by the evening and night he came home and started throwing up. Initially it was just pain had significant nausea and vomiting and throwing up bile. Call the ambulance which brought him into the emergency room and here he was noted to have a diffusely tender abdomen but more so in the right upper quadrant area and white count elevated 18. CT scan of his abdomen and pelvis showed a significantly edematous gallbladder consistent with cholecystitis. LFTs otherwise are within normal limits. He has never had pain like this before. No other sick contacts no unusual diet Review of Systems Review of Systems: Yes all other systems are reviewed and are negative PMFSH Past Medical History Medical History Neuropathy GERD (gastroesophageal reflux disease) Depression Asthma Psoriatic arthritis HTN (hypertension) Anemia Diverticulosis Surgical History Surgical History History of excision of mass Hx of knee surgery History of back surgery History of esophagogastroduodenoscopy (EGD) H/O colonoscopy Social History Social History Are you a primary pet care technician to a significant other at home: No Alcohol intake: never Patient Tobacco Use Status: Former Tobacco user Tobacco use type: Cigarette Smoked in Last 30 Days: No Substance Use Type: Marijuana Substance Use Frequency: Daily Last Used Substance: Hours (ago) Advance Directives: No Advance Directives Information Provided: Yes Do you have a plan to hurt others: No Plan Meds Allergies Allergy/AdvReac Type Severity Reaction Status Date / Time banana [Banana] Allergy Mild HIVES Verified 09/12/24 02:25 lisinopril [LISINOPRIL] Allergy Unknown ANGIOEDEMA Verified 09/12/24 02:25 Active Medications: Current Medications Acetaminophen (Acetaminophen 325 Mg Tablet) 650 mg PO Q6H PRN PRN Reason: Pain, Mild 1-3,fever,headache Hydromorphone HCl (Hydromorphone Hcl 1 Mg/Ml Syringe) 0.5 mg IVPUSH Q4H PRN; Protocol PRN Reason: Pain, Severe (Pain Scale 7-10) Sodium Chloride (Ns) 1,000 mls @ 100 mls/hr IVCONT .Q10H [facility] Last Admin: 09/12/24 09:29 Dose: 100 mls/hr Piperacillin Sod/Tazobactam (Sod 3.375 gm/ Sodium Chloride) 50 mls @ 100 mls/hr IV Q6H [facility] Melatonin (Melatonin 3 Mg Tablet) 6 mg PO BEDTIME PRN PRN Reason: Insomnia Ondansetron HCl (Ondansetron Hcl 4 Mg/2 Ml Vial) 4 mg IVPUSH Q8H PRN PRN Reason: Nausea and Vomiting Sodium Chloride (0.9 % Sodium Chloride Flush 3 Ml Syringe) 3 ml IVFLUSH QSHIFT [facility] Home Medications ?Medication ?Instructions ?Recorded ?Confirmed ?Last Taken ?Type albuterol sulfate 90 mcg/actuation 2 puff inhalation Q4-6H PRN 08/27/24 09/12/24 Unknown History aerosol inhaler (Ventolin HFA) Shortness Of Breath Or Wheezing amlodipine 5 mg tablet 5 mg PO DAILY 08/27/24 09/12/24 09/11/24 History duloxetine 60 mg capsule,delayed 60 mg PO DAILY 08/27/24 09/12/24 09/11/24 History release sprinkle gabapentin 300 mg capsule 300 mg PO BID 08/27/24 09/12/24 09/11/24 History metoprolol tartrate 50 mg tablet 50 mg PO BID 08/27/24 09/12/24 09/11/24 History montelukast 10 mg tablet 10 mg PO BEDTIME 08/27/24 09/12/24 Unknown History dupilumab 300 mg/2 mL subcutaneous 300 mg subcut Q14D 09/12/24 Unknown History pen injector (Dupixent) Physical Exam Vital Signs: Vital Signs: Last Vital Signs Temp 98.5 F 09/12/24 06:01 Pulse 102 H 09/12/24 06:01 Resp 18 09/12/24 08:28 BP 188/102 H 09/12/24 06:01 Pulse Ox 99 09/12/24 06:01 O2 Del Method Room Air 01/26/25 06:01 BMI result Body Mass Index 28.1 Const: General: cooperative, healthy appearing and acute distress mild Eyes: Other: Nonicteric GI: Other: Abdomen is soft but tender in the right upper quadrant with guarding no rebound no peritoneal signs Skin: Other: Nonicteric Psych: Appearance: grossly normal Mental Status: mental status grossly normal Speech and movement: Normal speech and movement present Affect: normal affect Attitude: cooperative Thought process: Normal thought process present Thought content: Normal thought content present Insight: Good insight present (Psych) Judgement: Good judgement present (Psych) Results Results Labs: Short CBC 09/12/24 Range/Units 02:49 WBC 18.1 H (4.8-10.8) X10*3/uL Hgb 16.2 (14.0-18.0) g/dl Hct 44.7 (42.0-52.0) % Plt Count 255 (160-400) X10*3/uL BMP 09/12/24 02:49 Sodium 139 Potassium 3.8 Chloride 102 Carbon Dioxide 18 L BUN 13 Creatinine 0.79 Calcium 10.8 H Liver Function 09/12/24 Range/Units 02:49 Total Bilirubin 1.1 H (0.0-1.0) mg/dL Direct Bilirubin 0.2 (0.0-0.5) mg/dL AST 35 (5-37) U/L ALT 22 (0-40) U/L Alkaline Phosphatase 66 (39-117) U/L Albumin 5.0 (3.5-5.0) g/dL Urine 09/12/24 Range/Units 08:56 Urine Color Yellow Urine Appearance Clear Urine pH 7.5 (5.0-9.0) Ur Specific [place] >= 1.030 H (1.005-1.025) Urine Protein 30 (1+) H (Neg-Trace) mg/dL Urine Glucose (UA) Negative (Negative) mg/dL Abdomen CT scan report/results: report reviewed and image reviewed CT scan - pelvis: report reviewed and image reviewed Additional studies: Pablo Scott MR#: [id number] : 1970 Acct:[id number] Age/Sex: 54 / M ADM Date: 09/12/24 Loc: HO.ED Attending Dr: Ordering Physician: Galina De Jesus MD Date of Service: 09/12/24 Procedure(s): CT abdomen pelvis w IV con Accession Number(s): [id number] cc: Pat Morrison MD; Galina De Jesus MD~ Report Number: [id number]: Total DLP = 536.00 mGy-cm ADDENDUMThis document has been electronically signed by: Pablo Sierra MD on 09/12/2024 06:05:02 ADDENDUM: Receipt of this report by the clinical staff was confirmed with MONICA Kilgore on Sep 12, 2024 06:54:00 EST. This document has been electronically signed by: Maci Puga on 09/12/2024 06:55:13 Addendum Dictated By: Pablo Sierra MD Addendum Signed By: <Electronically signed by Pablo Sierra MD in OV> 09/12/24655 Addendum Cosigned By: DD/ TD/TT: 09/12/24 CLINICAL HISTORY: diffuse abd pain, worse epigastric CT abdomen and pelvis with contrast Comparison: None Findings: The lung bases are clear. There is marked pericholecystic edema, possible cholecystitis. Solid organs are within normal limits. No renal stones. No bowel obstruction, pneumoperitoneum, or pneumatosis. Pelvic contents unremarkable. Normal appendix. The bones are intact. IMPRESSION: Possible acute cholecystitis. Clinically appropriate follow-up recommended. This document has been electronically signed by: Pablo Sierra MD on 09/12/2024 06:05:02 Dictated By: Pablo Sierra MD Signed By: <Electronically signed by Pablo Sierra MD in OV> 09/12/24643 DD/ 4 TD/TT: 09/12/24604 Assessment and Plan (1) Acute cholecystitis: Status: Acute Plan 54-year-old male with abdominal pain in the right upper quadrant nausea and vomiting elevated white count CT scan showing findings consistent with acute cholecystitis. Plan to carry out laparoscopic cholecystectomy possible open procedure possible cholangiogram. Patient has had previous umbilical hernia repair with mesh so we will try to work around that. Risks and benefits were discussed with the patient including but not limited to bleeding infection open procedure bile duct leak possible bile duct injury possible bowel injury and despite this he wishes to proceed. He is admitted NPO IV fluids IV antibiotics Zosyn Quality Stroke Does the patient have a stroke diagnosis?: No VTE Prior VTE?: No VTE Risk Level:: Surgical - low VTE Device Contraindication: N/A - Device Ordered VTE Drug Contraindication: Treatment Not Indicated Procedures Date of Service Date of Service: 09/12/24
--- NOTE | 2024-09-12 12:57 | HO.ANESPROP2 ---
HPI - Anesthesia Eval Consult details Narrative: Acute cholecystitis PMFSH Active Problems Active Problems: All Active Problems Acute cholecystitis (Acute) Past Medical History Medical History Neuropathy GERD (gastroesophageal reflux disease) Depression Asthma Psoriatic arthritis HTN (hypertension) Anemia Diverticulosis Family History Family history of problems with anesthesia: No Surgical History Surgical History History of excision of mass Hx of knee surgery History of back surgery History of esophagogastroduodenoscopy (EGD) H/O colonoscopy History of Problems with Anesthesia: No Social History Social History Are you a primary rn complex care to a significant other at home: No Alcohol intake: never Patient Tobacco Use Status: Former Tobacco user Tobacco use type: Cigarette Smoked in Last 30 Days: No Substance Use Type: Marijuana Substance Use Frequency: Daily Last Used Substance: Hours (ago) Advance Directives: No Advance Directives Information Provided: Yes Do you have a plan to hurt others: No Plan Meds Allergies Allergy/AdvReac Type Severity Reaction Status Date / Time banana [Banana] Allergy Mild HIVES Verified 09/12/24 02:25 lisinopril [LISINOPRIL] Allergy Unknown ANGIOEDEMA Verified 09/12/24 02:25 Active Medications: Current Medications Acetaminophen (Acetaminophen 325 Mg Tablet) 650 mg PO Q6H PRN PRN Reason: Pain, Mild 1-3,fever,headache Hydromorphone HCl (Hydromorphone Hcl 1 Mg/Ml Syringe) 0.5 mg IVPUSH Q4H PRN; Protocol PRN Reason: Pain, Severe (Pain Scale 7-10) Sodium Chloride (Ns) 1,000 mls @ 100 mls/hr IVCONT .Q10H [facility] Last Admin: 09/12/24 09:29 Dose: 100 mls/hr Piperacillin Sod/Tazobactam (Sod 3.375 gm/ Sodium Chloride) 50 mls @ 100 mls/hr IV Q6H [facility] Last Admin: 09/12/24 12:18 Dose: 100 mls/hr Melatonin (Melatonin 3 Mg Tablet) 6 mg PO BEDTIME PRN PRN Reason: Insomnia Ondansetron HCl (Ondansetron Hcl 4 Mg/2 Ml Vial) 4 mg IVPUSH Q8H PRN PRN Reason: Nausea and Vomiting Sodium Chloride (0.9 % Sodium Chloride Flush 3 Ml Syringe) [facility] ?Medication ?Instructions ?Recorded ?Confirmed ?Last Taken ?Type albuterol sulfate 90 mcg/actuation 2 puff inhalation Q4-6H PRN 08/27/24 09/12/24 Unknown History aerosol inhaler (Ventolin HFA) Shortness Of Breath Or Wheezing amlodipine 5 mg tablet 5 mg PO DAILY 08/27/24 09/12/24 09/11/24 History duloxetine 60 mg capsule,delayed 60 mg PO DAILY 08/27/24 09/12/24 09/11/24 History release sprinkle gabapentin 300 mg capsule 300 mg PO BID 08/27/24 09/12/24 09/11/24 History metoprolol tartrate 50 mg tablet 50 mg PO BID 08/27/24 09/12/24 09/11/24 History montelukast 10 mg tablet 10 mg PO BEDTIME 08/27/24 09/12/24 Unknown History dupilumab 300 mg/2 mL subcutaneous 300 mg subcut Q14D 09/12/24 Unknown History pen injector (Dupixent) Exam Height,Weight and Vital Signs: Height 5 ft 8 in Weight 83.915 kg Last Vital Signs Temp 98.5 F 09/12/24 06:01 Pulse 118 H 09/12/24 12:37 Resp 18 09/12/24 12:37 BP 129/73 09/12/24 12:37 Pulse Ox 98 09/12/24 12:37 O2 Del Method Room Air 09/12/24 12:37 Pertinent Lab Results Pertinent Lab Results: Laboratory Tests 09/12/24 09/12/24 09/12/24 02:49 06:00 08:16 WBC 18.1 H RBC 5.11 Hgb 16.2 Hct 44.7 MCV 87.5 MCH 31.7 MCHC 36.2 H RDW 12.2 Plt Count 255 MPV 10.8 Immature Gran % (Auto) 0.7 H Neut % (Auto) 87.7 H Lymph % (Auto) 4.1 L [place] % (Auto) 6.9 Eos % (Auto) 0.2 Baso % (Auto) 0.4 Lymph # (Auto) 0.7 L [place] # (Auto) 1.3 H Eos # (Auto) 0.0 Baso # (Auto) 0.1 Abs Immat Gran (auto) 0.12 H Absolute Neuts (auto) 15.9 H Absolute Nucleated RBC 0.000 Nucleated RBC % (auto) 0.0 Sodium 139 Potassium 3.8 Chloride 102 Carbon Dioxide 18 L Anion Gap 23 H BUN 13 Creatinine 0.79 Estim Creat Clear Calc 111.4 Estimated GFR > 60 Random Glucose 174 H Lactic Acid 3.4 H* Lactic Acid F/U @ 2Hr 2.2 H* Lactic Acid F/U @ 4Hr Calcium 10.8 H Total Bilirubin 1.1 H Direct Bilirubin 0.2 AST 35 ALT 22 Alkaline Phosphatase 66 Troponin I High Sens 5.9 Total Protein 9.0 H Albumin 5.0 Lipase 22 Urine Color Urine Appearance Urine pH Ur Specific [place] Urine Protein Urine Glucose (UA) Urine Ketones Urine Blood Urine Nitrite Ur Leukocyte Esterase Urine RBC Urine WBC Ur Squamous Epith Cells Urine Bacteria Hyaline Casts Influenza Type A (PCR) NEGATIVE Influenza Type B (PCR) NEGATIVE RSV RNA Qual (PCR) NEGATIVE SARS-CoV-2 RNA (RT-PCR) NEGATIVE 09/12/24 09/12/24 08:56 10:32 WBC RBC Hgb Hct MCV MCH MCHC RDW Plt Count MPV Immature Gran % (Auto) Neut % (Auto) Lymph % (Auto) [place] % (Auto) Eos % (Auto) Baso % (Auto) Lymph # (Auto) [place] # (Auto) Eos # (Auto) Baso # (Auto) Abs Immat Gran (auto) Absolute Neuts (auto) Absolute Nucleated RBC Nucleated RBC % (auto) Sodium Potassium Chloride Carbon Dioxide Anion Gap BUN Creatinine Estim Creat Clear Calc Estimated GFR Random Glucose Lactic Acid Lactic Acid F/U @ 2Hr Lactic Acid F/U @ 4Hr 2.4 H* Calcium Total Bilirubin Direct Bilirubin AST ALT Alkaline Phosphatase Troponin I High Sens Total Protein Albumin Lipase Urine Color Yellow Urine Appearance Clear Urine pH 7.5 Ur Specific [place] >= 1.030 H Urine Protein 30 (1+) H Urine Glucose (UA) Negative Urine Ketones 80 Urine Blood Trace H Urine Nitrite Negative Ur Leukocyte Esterase Negative Urine RBC 11-20 H Urine WBC 0-5 Ur Squamous Epith Cells 0-2 Urine Bacteria None Seen Hyaline Casts 0-2 Influenza Type A (PCR) Influenza Type B (PCR) RSV RNA Qual (PCR) SARS-CoV-2 RNA (RT-PCR) Airway Mallampati Class: II TM Dist: >3cm Neck ROM: Full Loose/Missing/Broken Teeth: No Heart: RRR Lungs: CTA Assessment and Plan Assessment Anesthesia Assessment: Anesthesia Plan Discussed and Chart Reviewed Final Anesthetic Review Family History of Problems with Anesthesia: No History of Problems with Anesthesia: No NPO: Yes ASA Class: II Final Preanesthetic Review: No Changes in Pt Med Stat, Meds/Allgs Chart Reviewed, Consent Obtained/Reviewed and Anes Risks/Benef Reviewed Patient Risk: Intermediate Procedure Risk: Intermediate Anesthetic Plan Anesthetic Plan: GA Disposition: Standard PACU
--- NOTE | 2024-09-12 13:09 | PC.NURSE ---
Report given to RN Pat in OR. RN to RN report given and Pat given opportunity for questions; all questions answered to satisfaction. Per Pat, OR is ready and Pt may be brought over.
[2024-09-12] MEDS: 0.9 % Sodium Chloride Flush 3 ML SYRINGE IVFLUSH (17:37)
--- NOTE | 2024-09-12 19:27 | P.OP_ITS ---
Operative Note Operative Note Date of Service: 09/12/24 Narrative: Preop diagnosis-=-acute cholecystitis Postop diagnosis--acute cholecystitis Procedure--laparoscopic cholecystectomy converted to open cholecystectomy Surgeon-Manjit Anesthesia--general endotracheal tube anesthesia History--patient is a 54-year-old male who came into the emergency room complaining about a 24 hour of epigastric pain right upper [place] [address] scan showing significant distended and inflamed gallbladder consistent with cholecystitis. Patient has never had issues like this before. As a result plan is to carry out laparoscopic cholecystectomy. Findings--hemorrhagic inflamed gallbladder very thickened and bleeding and oozing with multiple adhesions of the surrounding bowel to the gallbladder. This plus some issues with maintaining pneumoperitoneum caused a decision to convert from a laparoscopic to open procedure in order to get better control in determine the anatomy better. Procedure-- Patient was brought to the operative room under Anesthesia guidance was intubated. He had compression stockings placed before induction received antibiotics Zosyn around the clock since admission. His abdomen was prepped and draped in standard surgical fashion. Patient had had a previous umbilical hernia repair with mesh so it was decided to go into the left upper quadrant with a direct view 5 mm camera and port. This was done and the peritoneum cavity entered and pneumoperitoneum established. Next we examined to ensure that there was no injury to the bowel. This looked good and after establishing pneumoperitoneum the umbilical area was examined and there was just a small piece of mesh well in incorporated around the site. Just inferior to this there was no adhesions so another 12 port was placed under direct visualization using local. Camera was then repositioned there. And epigastric port was placed then to right upper quadrant ports as well. With some blunt dissection we were able to mobilize some of the omentum: And the stomach duodenum material away from the gallbladder where was stuck. This was very bloody and eventually found a spot on the superior aspect of the gallbladder which was very taut and in trying to elevated to then decompressive a hole was made and blood and bile poured out of it. This area was suctioned and irrigated to decompress the gallbladder. Then with more blunt careful dissection we are able to grasp the gallbladder and retracted superiorly and take down a lot of the adhesions but they are just seemed to be just very thickened adhesions at the inferior aspect in the just bled quite a bit. We are having trouble with maintaining pneumoperitoneum and the tank said that it was empty and so in the process deciding to pause and change the tank I did not feel confident that I was getting a good view of the anatomy that they wanted to do and there was just this ongoing ooze without any specific 1 or 2 bleeders so it was decided to just convert to an open procedure. The epigastric and 2 right upper quadrant port sites were all connected with a scalpel and cautery entering into the peritoneal cavity. There had been continue ooze blood although the patient was hemodynamically stable. On entering the gallbladder fossa area was packed with lap pads and then attention was taken now that there was controlled to set up the Bookwalter and get her other instruments in place. Retraction was then carried out and we were able to see the gallbladder and the liver bed and using some Mihaela clamps to retract and pull the gallbladder was removed off the liver bed carefully. There was still a general ooze ongoing in the little Surgicel was used in this area. In coming around anteriorly now we were able to identify the cystic artery and this was clipped twice and transected adjacent to it was the cystic duct which was dissected out but kept in place until all the adhesions and the-admits to the gallbladder liver area what taken down with cautery also using a right angle clamp. Now 2 clips with a clip women's basketball coach were used to come across the cystic duct and then it was transected next to the gallbladder. Now it was able to be removed from the peritoneal cavity and sent off for pathology. The right upper quadrant area was once again packed and attention was focused to getting the toes and suture for ?sure. A VASILE drain was obtained and was actually placed through the left upper quadrant open port site. Examining the right upper quadrant area hemostasis was achieved with some cautery and then eventually leaving little Surgicel in the gallbladder fossa. Examining the small intestine the colon the stomach in the duodenal sweep area it seemed like everything looked good without any injuries are without any significant ongoing bleeding. The peritoneum cavity was then closed with 2-0 absorbable suture and then PDS type suture 0 was used to close the anterior and posterior sheath fascia of the abdominal wall. This closed off our incision and then the skin area was closed with latasha the VASILE drain was secured. At the end of the case all sponge instrument and needle counts were correct. Estimated blood loss was around 120 cc specimens sent was the gallbladder. The patient was extubated returned stable to recovery room. Hemodynamically he was fine throughout the case.
[2024-09-12] MEDS: Gabapentin 300 MG CAPSULE PO (19:49)
[2024-09-12] MEDS: Montelukast Sodium 10 MG TABLET PO (19:49)
[2024-09-12] MEDS: Metoprolol Tartrate 50 MG TABLET PO (19:49)
[2024-09-12] MEDS: oxyCODONE HCl Immed Release 5 MG TABLET 10 MG PO (19:49)
[2024-09-13] MEDS: HYDROmorphone HCl 1 MG/ML SYRINGE IVPUSH ×5 (00:27→22:03)
[2024-09-13 03:29] VITALS: BP 105/60; PULSE 66; RESP 16; TEMP 37.1; O2SAT 96
[2024-09-13] MEDS: 0.9 % Sodium Chloride 1,000 ML 100 ML IVCONT (03:56)
[2024-09-13] MEDS: Piperacillin Sodium/Tazobactam 3.375 GM in 0.9 % Sodium Chloride 50 ML IV ×4 (05:26→23:25)
[2024-09-13] MEDS: oxyCODONE HCl Immed Release 5 MG TABLET 10 MG PO ×3 (05:30→19:38)
[2024-09-13 06:47] LABS: MANUAL DIFF FLAG NO
[2024-09-13 07:03] LABS: Basophils Percent Auto 0.2 % (0-2); Eosinophils Absolute Auto 0.2 X10*3/uL (0.0-0.4); Eosinophils Percent Auto 1.3 % (0-4); Imm Gran Abs Auto 0.07 X10*3/uL (0.00-0.03); Imm Gran Pct Auto 0.6 % (0.0-0.4); Lymphocytes Absolute Auto 1.1 X10*3/uL (1.2-4.9); Lymphocytes Percent Auto 8.6 % (20-40); Mean Corpuscular HGB Conc 33.3 g/dl (31.0-36.0); Mean Corpuscular Hemoglobin 31.6 pg (27.0-33.0); Mean Corpuscular Volume 94.8 fL (80.0-98.0); Mean Platelet Volume 11.5 fL (9.4-12.4); Monocytes Absolute Auto 1.4 X10*3/uL (0.1-1.2); Monocytes Percent Auto 10.8 % (2-11); Neutrophils Absolute Auto 9.9 x10*3/uL (2.0-8.3); Neutrophils Percent Auto 78.5 % (45-73); Platelet Count 174 X10*3/uL (160-400); Red Blood Count 3.48 X10*6/uL (4.60-5.80); Red Cell Distribution Width 13.1 % (11.0-16.0); White Blood Count 12.6 X10*3/uL (4.8-10.8)
[2024-09-13 07:17] LABS: Alanine Aminotransferase 60 U/L (0-40); Albumin Level 3.7 g/dL (3.5-5.0); Alkaline Phosphatase 64 U/L (39-117); Anion Gap 12 (12-20); Aspartate Amino Transferase 70 U/L (5-37); Bilirubin Total 1.6 mg/dL (0.0-1.0); Blood Urea Nitrogen 12 mg/dL (9-16); Calcium 8.7 mg/dL (8.4-10.2); Carbon Dioxide 26 mmol/L (22-29); Chloride 105 mmol/L (96-108); Creatinine Clr Calc Pharmacy 129.5; Estimated Glomerular Filt Rate > 60; Glucose Random 94 mg/dL (60-115); Potassium 3.8 mmol/L (3.3-5.1); Sodium 139 mmol/L (135-145); Total Protein 6.4 g/dL (6.5-8.0)
[2024-09-13] MEDS: Metoprolol Tartrate 50 MG TABLET PO ×2 (07:45→19:38)
[2024-09-13] MEDS: amLODIPine Besylate 5 MG TABLET PO (07:45)
[2024-09-13] MEDS: DULoxetine HCl 60 MG CAPSULE.DR PO (07:45)
[2024-09-13] MEDS: Gabapentin 300 MG CAPSULE PO ×2 (07:45→19:38)
[2024-09-13 08:00] VITALS: BP 115/57; PULSE 71; RESP 18; TEMP 37.1; O2SAT 98
--- NOTE | 2024-09-13 08:31 | P.PNGS_ITS ---
Subjective Subjective Date of Service: 09/13/24 <Kamala Nolen PA-C - Last Filed: 09/13/24 08:37> 09/13/24 <Tomeka Saravia MD - Last Filed: 09/13/24 13:29> Interval history: Having intermittent nausea. C/o incisional pain but comfortable with analgesics. Stood at bedside to use urinal but has not ambulated. Using incentive spirometer. <Kamala Nolen PA-C - Last Filed: 09/13/24 08:37> Physical Exam 2 Vital Signs: Vital Signs: Last Vital Signs Temp 98.7 F 09/13/24 08:00 Pulse 71 09/13/24 08:00 Resp 18 09/13/24 08:00 BP 115/57 L 09/13/24 08:00 Pulse Ox 98 09/13/24 08:00 O2 Del Method Room Air 09/13/24 08:00 O2 Flow Rate 2 09/12/24 17:16 BMI result Body Mass Index 28.1 <NATHALIA Armstrong Last Filed: 09/13/24 08:37> Const: General: comfortable, no acute distress and alert <NATHALIA Armstrong Last Filed: 09/13/24 08:37> Orientation/consciousness: patient oriented x3 <NATHALIA Armstrong Last Filed: 09/13/24 08:37> Resp: Effort & Inspection: normal respiratory effort <NATHALIA Armstrong Last Filed: 09/13/24 08:37> GI: Other: dressings intact, small amt of staining of dressing of giacomo incision VASILE drain serosanguineous output <NATHALIA Armstrong Last Filed: 09/13/24 08:37> Palpation (GI): Soft to palpation, Tenderness to palpation present (GI) (mild incisional) and no guarding <NATHALIA Armstrong Last Filed: 09/13/24 08:37> Skin: General skin exam: no rashes or lesions noted and no jaundice < NATHALIA Armstrong Last Filed: 09/13/24 08:37> Neuro: General: patient oriented x3 and moves all extremities <Kamala Nolen PA-C - Last Filed: 09/13/24 08:37> Objective Data Active Medications Acetaminophen (Acetaminophen 325 Mg Tablet) 650 mg PO Q6H PRN PRN Reason: Pain, Mild 1-3,fever,headache Albuterol Sulfate (Albuterol Sulfate 90 Mcg 8 Gm Inhaler) 2 puff INHALE Q4H PRN PRN Reason: Shortness Of Breath Or Wheezing Amlodipine Besylate (Amlodipine Besylate 5 Mg Tablet) 5 mg PO DAILY [facility]; Protocol Last Admin: 09/13/24 07:45 Dose: 5 mg Documented By: WILI Duloxetine HCl (Duloxetine Hcl 60 Mg Capsule.Dr) 60 mg PO DAILY [facility] Last Admin: 09/13/24 07:45 Dose: 60 mg Documented By: WILI Gabapentin (Gabapentin 300 Mg Capsule) 300 mg PO BID [facility] Last Admin: 09/13/24 07:45 Dose: 300 mg Documented By: WILI Hydromorphone HCl (Hydromorphone Hcl 1 Mg/Ml Syringe) 0.5 mg IVPUSH Q4H PRN; Protocol PRN Reason: Pain, Severe (Pain Scale 7-10) Hydromorphone HCl (Hydromorphone Hcl 1 Mg/Ml Syringe) 1 mg IVPUSH Q3H PRN; Protocol PRN Reason: Pain, Severe (Pain Scale 7-10) Last Admin: 09/13/24 07:44 Dose: 1 mg Documented By: WILI Sodium Chloride (Ns) 1,000 mls @ 100 mls/hr IVCONT .Q10H [facility] Last Admin: 09/13/24 03:56 Dose: 100 mls/hr Documented By: JANNIE Piperacillin Sod/Tazobactam (Sod 3.375 gm/ Sodium Chloride) 50 mls @ 100 mls/hr IV Q6H [facility] Last Infusion: 09/13/24 05:57 Dose: Infused Documented By: JANNIE Melatonin (Melatonin 3 Mg Tablet) 6 mg PO BEDTIME PRN PRN Reason: Insomnia Metoprolol Tartrate (Metoprolol Tartrate 50 Mg Tablet) 50 mg PO BID [facility]; Protocol Last Admin: 09/13/24 07:45 Dose: 50 mg Documented By: WILI Montelukast Sodium (Montelukast Sodium 10 Mg Tablet) 10 mg PO BEDTIME [facility] Last Admin: 09/12/24 19:49 Dose: 10 mg Documented By: JANNIE Naloxone HCl (Naloxone Hcl 0.4 Mg/Ml Vial) 0.04 mg IVPUSH Q5M PRN PRN Reason: Excessive sedation or RR < 8 Ondansetron HCl (Ondansetron Hcl 4 Mg/2 Ml Vial) 4 mg IVPUSH Q8H PRN PRN Reason: Nausea and Vomiting Ondansetron HCl (Ondansetron Hcl 4 Mg/2 Ml Vial) 4 mg IVPUSH Q4H PRN PRN Reason: Nausea and Vomiting Last Admin: 09/12/24 19:49 Dose: 4 mg Documented By: JANNIE Oxycodone HCl (Oxycodone Hcl Immed Release 5 Mg Tablet) 10 mg PO Q4H PRN PRN Reason: Pain, Moderate(Pain Scale 4-6) Last Admin: 09/13/24 05:30 Dose: 10 mg Documented By: JANNIE Sodium Chloride (0.9 % Sodium Chloride Flush 3 Ml Syringe) 3 ml IVFLUSH [facility] Last Admin: 09/13/24 07:25 Dose: Not Given Documented By: WILI Non-Admin Reason: IV Running <Kamala Nolen PA-C - Last Filed: 09/13/24 08:37> Labs CBC & Chem 7: 09/13/24 05:38 09/13/24 05:38 <Kamala Nolen PA-C - Last Filed: 09/13/24 08:37> Labs: Laboratory Results - last 24 hr 09/12/24 09/12/24 09/12/24 08:16 08:56 10:32 MCV MCH MCHC RDW Plt Count MPV Immature Gran % (Auto) Neut % (Auto) Lymph % (Auto) [place] % (Auto) Eos % (Auto) Baso % (Auto) Lymph # (Auto) [place] # (Auto) Eos # (Auto) Baso # (Auto) Abs Immat Gran (auto) Absolute Neuts (auto) Absolute Nucleated RBC Nucleated RBC % (auto) Anion Gap Estim Creat Clear Calc Estimated GFR Random Glucose Lactic Acid F/U @ 2Hr 2.2 H* Lactic Acid F/U @ 4Hr 2.4 H* Calcium Total Bilirubin AST ALT Alkaline Phosphatase Total Protein Albumin Urine Color Yellow Urine Appearance Clear Urine pH 7.5 Ur Specific [place] >= 1.030 H Urine Protein 30 (1+) H Urine Glucose (UA) Negative Urine Ketones 80 Urine Blood Trace H Urine Nitrite Negative Ur Leukocyte Esterase Negative Urine RBC 11-20 H Urine WBC 0-5 Ur Squamous Epith Cells 0-2 Urine Bacteria None Seen Hyaline Casts 0-2 09/13/24 05:38 MCV 94.8 D MCH 31.6 MCHC 33.3 RDW 13.1 Plt Count 174 D MPV 11.5 Immature Gran % (Auto) 0.6 H Neut % (Auto) 78.5 H Lymph % (Auto) 8.6 L [place] % (Auto) 10.8 Eos % (Auto) 1.3 Baso % (Auto) 0.2 Lymph # (Auto) 1.1 L [place] # (Auto) 1.4 H Eos # (Auto) 0.2 Baso # (Auto) 0.0 Abs Immat Gran (auto) 0.07 H Absolute Neuts (auto) 9.9 H Absolute Nucleated RBC 0.000 Nucleated RBC % (auto) 0.0 Anion Gap 12 Estim Creat Clear Calc 129.5 Estimated GFR > 60 Random Glucose 94 Lactic Acid F/U @ 2Hr Lactic Acid F/U @ 4Hr Calcium 8.7 D Total Bilirubin 1.6 H AST 70 H ALT 60 H Alkaline Phosphatase 64 Total Protein 6.4 L Albumin 3.7 Urine Color Urine Appearance Urine pH Ur Specific [place] Urine Protein Urine Glucose (UA) Urine Ketones Urine Blood Urine Nitrite Ur Leukocyte Esterase Urine RBC Urine WBC Ur Squamous Epith Cells Urine Bacteria Hyaline Casts <NATHALIA Armstrong Last Filed: 09/13/24 08:37> Microbiology Microbiology Results: Microbiology 09/12/24 06:01 Blood Culture - Preliminary Blood - Venous No growth after 24 hours. 09/12/24 06:01 Blood Culture - Preliminary Blood - Venous No growth after 24 hours. <Kamala Nolen PA-C - Last Filed: 09/13/24 08:37> Procedures Date of Service Date of Service: 09/13/24 <NATHALIA Armstrong Last Filed: 09/13/24 08:37> 09/13/24 <Tomeka Saravia MD - Last Filed: 09/13/24 13:29> Progress Note: A&P Assessment and plan (1) Acute cholecystitis: Status: Acute <Kamala Nolen PA-C - Last Filed: 09/13/24 08:37> (2) S/P cholecystectomy: Status: Acute <NATHALIA Armstrong Last Filed: 09/13/24 08:37> Assessment and Plan: POD #1 s/p lap attempted converted for open cholecystectomy for acute cholecystitis. Doing fairly well post op, good pain control. VSS. Abd exam benign with intact dressings, appropriate post op tenderness. VASILE drain serosanguineous output. LFTs slightly increased this AM. WBC improved. No acute post op issues. Diet as tolerated. OOB/ambulation and increase activity, incentive spirometer. Pain control. Repeat LFTs in AM. <JUDIE Armstrong - Last Filed: 09/13/24 08:37> POD #1 s/p lap attempted converted for open cholecystectomy for acute cholecystitis. Doing fairly well post op, good pain control. VSS. Abd exam benign with intact dressings, appropriate post op tenderness. VASILE drain serosanguineous output. LFTs slightly increased this AM. WBC improved. No acute post op issues. Diet as tolerated. OOB/ambulation and increase activity, incentive spirometer. Pain control. Repeat LFTs in AM. Patient is seen and agree with the above assessment and plan. Overall doing well VASILE drain just with some serosanguineous fluid labs consistent with bad cholecystitis and cauterization of the liver bed. We will allow a little bit of toast today and re-evaluate tomorrow. <Tomeka Saravia MD - Last Filed: 09/13/24 13:29> Time Spent With Patient Time: Total time managing care of this patient today ____ minutes. <Kamala Nolen PA-C - Last Filed: 09/13/24 08:37> Quality Stroke Does the patient have a stroke diagnosis?: No <NATHALIA Armstrong Last Filed: 09/13/24 08:37> VTE Prior VTE?: No <NATHALIA Armstrong Last Filed: 09/13/24 08:37> VTE Risk Level:: Surgical - low <NATHALIA Armstrong Last Filed: 09/13/24 08:37> VTE Device Contraindication: N/A - Device Ordered <Kamala Nolen PA-C - Last Filed: 09/13/24 08:37> VTE Drug Contraindication: Treatment Not Indicated <NATHALIA Armstrong Last Filed: 09/13/24 08:37>
--- NOTE | 2024-09-13 10:19 | MHC.CM.PN ---
PT IS INDEPENDNT HAS OWN RIDE HOME WILL NOT NEED SERVIES
[2024-09-13] MEDS: ondansetron HCL 4 MG/2 ML VIAL IVPUSH (11:33)
[2024-09-13 11:45] VITALS: BP 112/58; PULSE 76; RESP 18; TEMP 36.5; O2SAT 98
[2024-09-13] MEDS: Omeprazole 20 MG CAPSULE.DR PO (12:44)
[2024-09-13 15:37] VITALS: BP 136/62; PULSE 98; RESP 18; TEMP 37.2; O2SAT 98
[2024-09-13 19:28] VITALS: BP 107/65; PULSE 67; RESP 14; TEMP 37.2; O2SAT 98
[2024-09-13] MEDS: Montelukast Sodium 10 MG TABLET PO (19:38)
[2024-09-13] MEDS: 0.9 % Sodium Chloride Flush 3 ML SYRINGE IVFLUSH (23:30)
[2024-09-13 23:32] VITALS: BP 124/65; PULSE 74; RESP 16; TEMP 37.2; O2SAT 93
[2024-09-14 03:36] VITALS: BP 118/71; PULSE 99; RESP 16; TEMP 36.8; O2SAT 93
[2024-09-14] MEDS: Omeprazole 20 MG CAPSULE.DR PO (05:58)
[2024-09-14] MEDS: Piperacillin Sodium/Tazobactam 3.375 GM in 0.9 % Sodium Chloride 50 ML IV ×2 (05:59→11:39)
[2024-09-14] MEDS: oxyCODONE HCl Immed Release 5 MG TABLET 10 MG PO ×2 (06:04→11:35)
[2024-09-14 08:00] VITALS: BP 142/70; PULSE 67; RESP 18; TEMP 37.4; O2SAT 95
[2024-09-14 09:08] VITALS: BP 142/70; PULSE 67
[2024-09-14] MEDS: 0.9 % Sodium Chloride Flush 3 ML SYRINGE IVFLUSH (09:08)
[2024-09-14] MEDS: amLODIPine Besylate 5 MG TABLET PO (09:08)
[2024-09-14] MEDS: Gabapentin 300 MG CAPSULE PO (09:08)
[2024-09-14] MEDS: DULoxetine HCl 60 MG CAPSULE.DR PO (09:08)
[2024-09-14] MEDS: Metoprolol Tartrate 50 MG TABLET PO (09:08)
--- NOTE | 2024-09-14 09:34 | HO.POSTANES ---
Post Anesthesia Evaluation Post Anesthesia Evaluation Date of Service: 09/14/24 Vital Signs: Vital Signs Temp Pulse Resp BP Pulse Ox O2 Del Method 09/14/24 09:08 67 142/70 H 09/14/24 09:08 142/70 H 09/14/24 08:00 99.3 F 67 18 142/70 H 95 Room Air 09/14/24 03:36 98.3 F 99 16 118/71 93 Room Air 09/13/24 23:32 98.9 F 74 16 124/65 93 Room Air Anesthesia: General Mental Status: Awake Pain Control: Satisfactory Nausea/Vomiting: None Hydration: Adequate Anesthesia-Related Issues: No Anes. Related Issues
--- NOTE | 2024-09-14 11:24 | P.PNGS_ITS ---
Subjective Subjective Date of Service: 09/14/24 <Kamala Nolen PA-C - Last Filed: 09/14/24 11:27> 09/14/24 <Osmany Devlin MD - Last Filed: 09/14/24 11:37> Interval history: Feels improved this morning. Incisional pain less this morning, comfortable on oral analgesics. Has been OOB and ambulating halls. Tolerating full liquids without further nausea and is hungry. <Kamala Nolen PA-C - Last Filed: 09/14/24 11:27> Physical Exam 2 Vital Signs: Vital Signs: Last Vital Signs Temp 99.3 F 09/14/24 08:00 Pulse 67 09/14/24 09:08 Resp 18 09/14/24 08:00 BP 142/70 H 09/14/24 09:08 Pulse Ox 95 09/14/24 08:00 O2 Del Method Room Air 09/14/24 08:00 O2 Flow Rate 2 09/12/24 17:16 BMI result Body Mass Index 28.1 <Kamala Nolen PA-C - Last Filed: 09/14/24 11:27> Const: General: comfortable, no acute distress and alert <Kamala Nolen PA-C - Last Filed: 09/14/24 11:27> Resp: Effort & Inspection: normal respiratory effort <NATHALIA Armstrong Last Filed: 09/14/24 11:27> GI: Other: VASILE scant serosanguineous <Kamala Nolen PA-C - Last Filed: 09/14/24 11:27> Inspection: No distended and Yes incision (clean) <Kamala Nolen PA-C - Last Filed: 09/14/24 11:27> Palpation (GI): Soft to palpation, Tenderness to palpation present (GI) (mild incisional), no guarding and not rigid <NATHALIA Armstrong Last Filed: 09/14/24 11:27> Skin: General skin exam: no rashes or lesions noted and no jaundice < NATHALIA Armstrong Last Filed: 09/14/24 11:27> Objective Data Active Medications Acetaminophen (Acetaminophen 325 Mg Tablet) 650 mg PO Q6H PRN PRN Reason: Pain, Mild 1-3,fever,headache Albuterol Sulfate (Albuterol Sulfate 90 Mcg 8 Gm Inhaler) 2 puff INHALE Q4H PRN PRN Reason: Shortness Of Breath Or Wheezing Amlodipine Besylate (Amlodipine Besylate 5 Mg Tablet) 5 mg PO DAILY [facility]; Protocol Last Admin: 09/14/24 09:08 Dose: 5 mg Documented By: WILI Duloxetine HCl (Duloxetine Hcl 60 Mg Capsule.) 60 mg PO DAILY [facility] Last Admin: 09/14/24 09:08 Dose: 60 mg Documented By: WILI Gabapentin (Gabapentin 300 Mg Capsule) 300 mg PO BID [facility] Last Admin: 09/14/24 09:08 Dose: 300 mg Documented By: WILI Hydromorphone HCl (Hydromorphone Hcl 1 Mg/Ml Syringe) 1 mg IVPUSH Q3H PRN; Protocol PRN Reason: Pain, Severe (Pain Scale 7-10) Last Admin: 09/13/24 22:03 Dose: 1 mg Documented By: JANNIE Piperacillin Sod/Tazobactam (Sod 3.375 gm/ Sodium Chloride) 50 mls @ 100 mls/hr IV Q6H [facility] Last Infusion: 09/14/24 06:40 Dose: Infused Documented By: JANNIE Melatonin (Melatonin 3 Mg Tablet) 6 mg PO BEDTIME PRN PRN Reason: Insomnia Metoprolol Tartrate (Metoprolol Tartrate 50 Mg Tablet) 50 mg PO BID [facility]; Protocol Last Admin: 09/14/24 09:08 Dose: 50 mg Documented By: WILI Montelukast Sodium (Montelukast Sodium 10 Mg Tablet) 10 mg PO BEDTIME [facility] Last Admin: 09/13/24 19:38 Dose: 10 mg Documented By: ILIANA Naloxone HCl (Naloxone Hcl 0.4 Mg/Ml Vial) 0.04 mg IVPUSH Q5M PRN PRN Reason: Excessive sedation or RR < 8 Omeprazole (Omeprazole 20 Mg Capsule.) 20 mg PO DAILY@0630 [facility] Last Admin: 09/14/24 05:58 Dose: 20 mg Documented By: JANNIE Ondansetron HCl (Ondansetron Hcl 4 Mg/2 Ml Vial) 4 mg IVPUSH Q8H PRN PRN Reason: Nausea and Vomiting Last Admin: 09/13/24 11:33 Dose: 4 mg Documented By: WILI Ondansetron HCl (Ondansetron Hcl 4 Mg/2 Ml Vial) 4 mg IVPUSH Q4H PRN PRN Reason: Nausea and Vomiting Last Admin: 09/12/24 19:49 Dose: 4 mg Documented By: JANNIE Oxycodone HCl (Oxycodone Hcl Immed Release 5 Mg Tablet) 10 mg PO Q4H PRN PRN Reason: Pain, Moderate(Pain Scale 4-6) Last Admin: 09/14/24 06:04 Dose: 10 mg Documented By: JANNIE Sodium Chloride (0.9 % Sodium Chloride Flush 3 Ml Syringe) 3 ml IVFLUSH QSHIFT [facility] Last Admin: 09/14/24 09:08 Dose: 3 ml Documented By: WILI <Kamala Nolen PA-C - Last Filed: 09/14/24 11:27> Labs CBC & Chem 7: 09/13/24 05:38 09/13/24 05:38 <Kamala Nolen PA-C - Last Filed: 09/14/24 11:27> Microbiology Microbiology Results: Microbiology 09/12/24 06:01 Blood Culture - Preliminary Blood - Venous No growth after 48 hours. 09/12/24 06:01 Blood Culture - Preliminary Blood - Venous No growth after 48 hours. <Kamala Nolen PA-C - Last Filed: 09/14/24 11:27> Procedures Date of Service Date of Service: 09/14/24 <Kamala Nolen PA-C - Last Filed: 09/14/24 11:27> 09/14/24 <Osmany Devlin MD - Last Filed: 09/14/24 11:37> Progress Note: A&P Assessment and plan (1) S/P cholecystectomy: Status: Acute <Kamala Nolen PA-C - Last Filed: 09/14/24 11:27> Assessment and Plan: Tolerating diet Says he has a good pain control Ambulating a lot Clinically looks well Abdomen is soft VASILE drain with serosanguineous Diet as tolerated Likely home later today or tomorrow Plan to DC drain prior to discharge <Osmany Devlin MD - Last Filed: 09/14/24 11:37> (2) Acute cholecystitis: Status: Acute <Kamala Nolen PA-C - Last Filed: 09/14/24 11:27> Assessment and Plan: POD #2 s/p lap attempted converted for open cholecystectomy for acute cholecystitis. Continues to do well post op. VSS. Abd exam benign with clean incisions, appropriate post op tenderness. VASILE drain remains serosanguineous output. Repeat LFTs pend. Will advance to solid diet. OOB/ambulation and increase activity, incentive spirometer. If tolerating solid diet, remains comfortable on oral analgesics, stable for dc to home later today. Will remove VASILE drain prior. Patient comfortable with plan. <Kamala Nolen PA-C - Last Filed: 09/14/24 11:27> Time Spent With Patient Time: Total time managing care of this patient today ____ minutes. <Kamala Nolen PA-C - Last Filed: 09/14/24 11:27> Quality Stroke Does the patient have a stroke diagnosis?: No <Kamala Nolen PA-C - Last Filed: 09/14/24 11:27> VTE Prior VTE?: No <Kamala Nolen PA-C - Last Filed: 09/14/24 11:27> VTE Risk Level:: Surgical - low <Kamala Nolen PA-C - Last Filed: 09/14/24 11:27> VTE Device Contraindication: N/A - Device Ordered <Kamala Nolen PA-C - Last Filed: 09/14/24 11:27> VTE Drug Contraindication: Treatment Not Indicated <Kamala Nolen PA-C - Last Filed: 09/14/24 11:27>
[2024-09-14 11:53] LABS: Alanine Aminotransferase 79 U/L (0-40); Albumin Level 3.6 g/dL (3.5-5.0); Aspartate Amino Transferase 60 U/L (5-37); Bilirubin Direct 0.3 mg/dL (0.0-0.5); Total Protein 6.5 g/dL (6.5-8.0)
[2024-09-14 11:59] VITALS: BP 160/92; PULSE 78; RESP 17; TEMP 37.1; O2SAT 95
[2024-09-14 12:43] LABS: Alkaline Phosphatase 137 U/L (39-117)
--- NOTE | 2024-09-14 14:27 | MHC.CM.PN ---
pt was dcd home self care
--- NOTE | 2024-09-16 08:46 | PM.DS ---
DS: Providers Provider Date of Service: 09/14/24 Date of admission: 09/12/24 09:05 Date of discharge: 09/14/24 Primary care physician: Pat Morrison MD Attending physician on admission: Tomeka Saravia Attending physician on discharge: Osmany Devlin DS: Diagnosis Discharge Diagnosis (1) S/P cholecystectomy: Status: Acute (2) Acute cholecystitis: Status: Acute DS: Summary Hospital Course Hospital Course: HPI AT ADMISSION: Pablo Scott is a 54 year old male who comes into the emergency room complaining of pain which started in his neck moving down to his epigastric area now a little more to the right side. It has started the day before and he went to work and worked yesterday but by the evening and night he came home and started throwing up. Initially it was just pain had significant nausea and vomiting and throwing up bile. Call the ambulance which brought him into the emergency room and here he was noted to have a diffusely tender abdomen but more so in the right upper quadrant area and white count elevated 18. CT scan of his abdomen and pelvis showed a significantly edematous gallbladder consistent with cholecystitis. LFTs otherwise are within normal limits. He has never had pain like this before. No other sick contacts no unusual diet HOSPITAL COURSE: The patient was admitted to the surgical service for further treatment of the acute cholecystitis. He elected to proceed with laparoscopic cholecystectomy, possible open. He was added onto the OR schedule for that day. On 09/12/24, attempted laparoscopic converted to open cholecystectomy was performed by Dr. Saravia without complication. The patient tolerated the procedure well. He had an uncomplicated recovery course. He remained inpatient for 2 days for pain control. On POD #2, the day of discharge, he felt well and was tolerating a solid diet without nausea or vomiting, had good pain control and was ambulating without difficulty. He was hemodynamically stable. He abdomen was benign with appropriate post op tenderness and clean incisions. His VASILE drain had scant nonbilious output and was removed. He felt ready for discharge. He was discharged to home on 09/14/24 in stable condition. He is to follow up in the office in 2 weeks. Status at Discharge Functional status at discharge: independent ambulation Overall status at discharge: patient is progressing back to baseline Time Attestation Discharge Coordination Time (in mins): 35 Quality: Safe Use of Opioids Does Pt have an Active Cancer Diagnosis on the Problem List?: No Quality: Stroke Does the patient have a stroke diagnosis?: No Physical Exam Vital Signs: Vital Signs: Last Vital Signs Temp 98.7 F 09/14/24 11:59 Pulse 78 09/14/24 11:59 Resp 17 09/14/24 11:59 BP 160/92 H 09/14/24 11:59 Pulse Ox 95 09/14/24 11:59 O2 Del Method Room Air 09/14/24 11:59 O2 Flow Rate 2 09/12/24 17:16 BMI result Body Mass Index 28.1 Const: General: comfortable, no acute distress and alert Orientation/consciousness: patient oriented x3 Resp: Effort & Inspection: normal respiratory effort GI: Other: clean incisions VASILE drain scant serosanguineous output and removed, dry dressing placed Inspection: No distended Palpation (GI): Soft to palpation, Tenderness to palpation present (GI) (mild incisional) and no guarding Skin: General skin exam: no rashes or lesions noted Neuro: General: patient oriented x3 and moves all extremities DS: Data Data Completed and Pending Completed studies during hospitalization [Text1]: 09/12/24 15:39 Surgical [PTH] Routine Gallbladder, cholecystectomy: Suppurative cholecystitis; cholelithiasis Labs on day of discharge: Preliminary micro results at discharge 09/12/24 06:01 Blood Culture - Preliminary Blood - Venous No growth after 48 hours. 09/12/24 06:01 Blood Culture - Preliminary Blood - Venous No growth after 48 hours. Discharge Plan Discharge Anticipated Discharge Date/Time: 09/14/24 14:14 Patient Disposition: Home, Self-Care Discharge Diagnosis: acute cholecystitis, s/p open cholecystectomy Referrals: Pat Morrison MD [Primary Care Provider] - 1 Week Osmany Devlin MD [Physician] - 2 Weeks Discharge Medications: New oxycodone 5 mg tablet 5 mg PO Q4H PRN (Reason: pain) Qty: 20 0RF Rx Instructions: Partial Fill upon patient request. docusate sodium [Colace] 100 mg capsule 100 mg PO BID Qty: 30 0RF Continued amlodipine 5 mg Tablet 5 mg PO DAILY metoprolol tartrate 50 mg Tablet 50 mg PO BID gabapentin 300 mg Capsule 300 mg PO BID montelukast 10 mg Tablet 10 mg PO BEDTIME albuterol sulfate [Ventolin HFA] 90 mcg/actuation Hfa Aerosol Inhaler 2 puff INHALATION Q4-6H PRN (Reason: Shortness Of Breath Or Wheezing) duloxetine 60 mg Capsule, Delayed Rel Sprinkle 60 mg PO DAILY Dupixent Pen 300 mg/2 mL pen injector 300 mg SUBCUT Q14D Discharge Orders: Discharge Order (Routine); Ordered 09/14/24 Ordered By: Kamala Nolen Diet: Advance to usual diet Activity on Discharge: No heavy lifting Stand Alone Forms: Patient Portal Discharge page, Work/School Release Print Language: Macedonian Activity Restrictions/Additional Instructions: If the incision area is tender, you may apply an ice pack for short intervals (No more than 20 minutes on, followed by at least 20 minutes off). Do not apply heat. Do not use creams, lotions, or topical antibiotics. These can cause infection or allergic reaction. Ok to shower. You have latasha closing your incision and these will be removed approximately 10-14 days after surgery. NO HEAVY LIFTING (>10lbs) or strenuous activity. Follow up in office in 1-2 weeks. ([phone]) Call Your Doctor If: -Your temperature exceeds 101.5? F -You experience excessive pain or swelling -You have an unexpected reaction to medication -You have excessive bleeding -You experience continued vomiting/nausea -Your incision begins to separate -Your incision shows signs of infection such as increased redness, swelling, excessive pain, drainage (light blood or clear fluid is normal) or heat Care Plan Goals: Return to baseline health and resume normal activities following recovery period. Health Concerns: acute cholecystitis Plan of Treatment: s/p lap attempted converted to open cholecystectomy F/u in office in 1-2 weeks Assessment: Doing well post op. Discharge Date/Time: 09/14/24 14:15
== END 2024-09-14 14:15 | disposition home or self-care (01) | DRG 416 ==
LOC: HO.ED 06:24 → HO.EDOVER 09:06 → HO.S3 15:46
PROVIDERS: Physician Assistant Surgical; Admitting Provider Surgery; Emergency Provider Emergency Medicine; PCP Family Medicine; Visit Provider Surgery
PROC: 0FT44ZZ Resection of Gallbladder, Percutaneous Endoscopic Approach (ICD-10-PCS; CPT 47562; principal; 2024-09-12 12:40)
DX: K81.0 Acute cholecystitis (principal); J45.909 Unspecified asthma, uncomplicated; K21.9 Gastro-esophageal reflux disease without esophagitis; G62.9 Polyneuropathy, unspecified; Z20.822 Contact with and (suspected) exposure to COVID-19; Z87.891 Personal history of nicotine dependence; Z79.899 Other long term (current) drug therapy
CPT/HCPCS: 0241U; 36415; 74177; 80053; 80076; 81001; 82248; 83605; 83690; 84484; 85025; 87040; 88304; 93005; 99285; A4649; J1100; J1171; J2003; J2004; J2270; J2405; J2543; J2704; J3010; Q9967

== ENCOUNTER → 2024-09-12 02:27 | Outpatient (BNV) | payer OTHER, SELFPAY | PROVIDERS: Admitting Provider Surgery; Emergency Provider Emergency Medicine; PCP Family Medicine; Visit Provider Internal Medicine Cardiovascular Disease | DX: R10.9 Unspecified abdominal pain (principal) | CPT/HCPCS: 93010 ==

== ENCOUNTER → 2024-09-12 05:23 | Outpatient (BNV) | payer OTHER, SELFPAY | PROVIDERS: Emergency Provider Emergency Medicine; PCP Family Medicine; Visit Provider Specialist | DX: R10.9 Unspecified abdominal pain (principal) | CPT/HCPCS: 74177 ==

== ENCOUNTER → 2024-09-12 09:05 | Outpatient (BNV) | payer OTHER, SELFPAY | PROVIDERS: Admitting Provider Surgery; Emergency Provider Emergency Medicine; PCP Family Medicine; Visit Provider Surgery | DX: Z90.49 Acquired absence of other specified parts of digestive tract (principal); K81.0 Acute cholecystitis | CPT/HCPCS: 47600; 99024; 99223 ==

== ENCOUNTER 2024-09-23 10:48 | Outpatient (AMB) | payer OTHER, SELFPAY ==
--- NOTE | 2024-09-23 10:48 | MHC.OFFVIS ---
Intake Visit Reasons: s/p open cholecystectomy Intake Note: This patient presents for post-op assessment status post open cholecystectomy. Pt c/o; soreness surgical site. 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 He underwent open cholecystectomy with Dr. Saravia for acute cholecystitis last 09/12/2024. He was discharged on postop day number 2. He says he has been doing well at home. He has good oral intake. He denies any significant pain. [facility] Medical History Fibromyalgia Neuropathy GERD (gastroesophageal reflux disease) Depression Asthma Psoriatic arthritis HTN (hypertension) Anemia Diverticulosis Surgical History History of excision of mass Hx of knee surgery History of back surgery History of esophagogastroduodenoscopy (EGD) H/O colonoscopy Social History Household Members: Significant Other Housing: House Are you a primary customer care voice consultant to a significant other at home: No Do you presently have visiting nurse or other home services: No Alcohol intake: never Patient Tobacco Use Status: Former Tobacco user Tobacco use type: Cigarette Substance Use Type: Marijuana service: No Review of Systems Const Denies chills and Denies fever(s) Card Denies chest pain at rest GI Denies vomiting Physical Exam Const General: comfortable and no acute distress Eyes Other: Anicteric sclerae Resp Effort & Inspection: normal respiratory effort GI Other: All incisions are well healed, no signs of hernias Palpation (GI): Soft to palpation, not firm and no guarding Assessment & Plan Assessment & Plan (1) S/P cholecystectomy: Code(s): Z90.49 - Acquired absence of other specified parts of digestive tract Category: Surgical Plan: He is doing very well postoperatively after open cholecystectomy for acute cholecystitis. His incisions are well healed. I removed his skin latasha. His path report shows suppurative cholecystitis I advised him to avoid lifting anything more than 20 lb for about 2 more weeks. He can follow up on a p.r.n. basis. Coding Level of Care Code Global (91427) Diagnoses S/P cholecystectomy Z90.49
== END 2024-09-23 10:56 | disposition home or self-care (01) ==
LOC: HO.HGS 10:48
PROVIDERS: PCP Family Medicine; Visit Provider Surgery
DX: Z90.49 Acquired absence of other specified parts of digestive tract (principal)
CPT/HCPCS: 99024

== ENCOUNTER 2025-05-06 07:59 | Outpatient (REF) | payer OTHER, SELFPAY ==
--- OUTSIDE RECORDS SUMMARY | 2024-08-31 05:10 | XMS_ITS ---
Author Organization [facility] Address [address] [place] [address] Care Team Providers Care Court Clerk Name Role Phone Pat Morrison MD Primary Care Provider Unavailab Anthony Pichardo Jr Unavailable [phone] REASON FOR VISIT screening Encounters Encounter Location Date Provider Diagnosis [facility] [address] [place], [place] [id number] 08/31/2024 Anthony San Jr Colon cancer screening Z12.11 and Colon polyps K63.5 Assessments Encounter Date Diagnosis (ICD Code) Assessment Notes Treatment Notes Treatment Clinical Notes Section Notes 08/31/2024 Colon cancer screening (ICD-10 - Z12.11) 08/31/2024 Colon polyps (ICD-10 - K63.5) Plan Of Treatment No Information Progress Notes * ROSALIA PERALTADOB:1970 (54 yo M)Acc No.[id number]:08/31/2024 COLON WITH MAC Patient: ROSALIA FORMAN Provider: Jesusita San MD :1970 A ge:54 Y S ex:Male Date:08/31/2024 Address:[address] [place] [address] [facility] Pcp:Pat Morrison MD Subjective: * Chief Complaints: * 1 . Screening. * Medical History: Objective: * Vitals: Assessment: * Assessment: 1. C olon cancer screening - Z12.11 (Primary) 2 . C olon polyps - K63.5? Plan: * Treatment: * Procedure Codes: 4 5385 LESION REMOVAL COLONOSCOPY, 0529F INTRVL 3+YRS PTS CLNSCP DOCD * * The named appointment provid er may or may not be the originator of this progress note, and it is not deemed complete until electronically signed by the appointment provider. Sign off status: Pending * Provider: Jesusita San MD Date: 0 08/31/2024 Generated for Tegan serrato/Dayne/Meg on: 0 05/07/2025 08:00 AM EDT
--- OUTSIDE RECORDS SUMMARY | 2024-09-01 06:00 | XMS_ITS ---
Author Organization [facility] Address [address] [place] [address] Care Team Providers Care Algorithm Design Engineer Name Role Phone Prince DA SILVA, Pat Primary Care Provider Kelli Tubbs Unavailable [phone] Encounters Encounter Location Date Provider Diagnosis [facility] [address] [place] [address] 09/01/2024 Kelli Wise Plan Of Treatment No Information Progress Notes * Pablo SCOTT RDOB:[birth year] (54 yo M)Acc No.[id number]:09/01/2024 Progress Note Patient: Paula NAVADanis Pablo Pedro Provider: Wil Wise DPM :1970 A ge:54 Y S ex:Male Date:09/01/2024 Address:[address] [place], [place] [address] Pcp:Pat Morrison MD Subjective: * Chief Complaints: * * Medical History: Objective: * Vitals: Assessment: Plan: * Treatment: * Images: * The named appointment provid er may or may not be the originator of this progress note, and it is not deemed complete until electronically signed by the appointment provider. Sign off status: Pending * Provider: Wil Wise DPM Date: 0 09/01/2024 Generated for Matthieui ng/Fapaulg/eTransmitting on: 0 05/07/2025 08:00 AM EDT
--- NOTE | ~2025-05-06 | XR_ITS ---
EXAMINATION: XR KNEE, RIGHT CLINICAL INFORMATION: M25.569 - Pain in unspecified knee COMPARISON: 11/03/2015. TECHNIQUE: AP view bilateral knees standing, lateral and patellofemoral views right knee. FINDINGS: LEFT Knee: There is been prior ACL repair. There is normal alignment. There is mild medial compartment joint space narrowing. Normal soft tissues. RIGHT Knee: There has been total right knee arthroplasty. There is been patellar resurfacing. Femoral, and tibial components are well seated, in anatomic alignment. No periprosthetic lucency or complication evident. There is a moderate sized suprapatellar joint effusion present. There are normal soft tissues. XR/XR knee RT 3V IMPRESSION: 1. Total RIGHT knee arthroplasty without complication evident. 2. There is a moderate RIGHT suprapatellar joint effusion Electronically signed by: Cruz Conway MD 05/06/2025 12:53 PM EDT
--- OUTSIDE RECORDS SUMMARY | 2025-05-07 08:01 | XMS_ITS | Patient Health Record ---
Author Organization [facility] Address [address] [place] [address] Care Team Providers Care Bay Stocker Name Role Phone Prince DA SILVA, Pat Primary Care Provider Anthony Benitez Jr Unavailable [phone] Allergies Allergen (clinical drug ingredient) Drug/Non Drug Allergy documented on EMR Reaction Allergy Type Onset Date Status lisinopril Lisinopril Unknown Drug Allergy Activ e Results Component Value Reference Range Notes Pathology Reviewed date:12/23/2024 11:48:42 PM Interpretation: Performing Lab:[facility], [address] [place] [id number] Notes/Report: Reason For Referral No Information Medications Medication [...] - NA Tobacco Use/Smoking Question Answer Notes Patient is [...] Never (0 point) Points 2 Interpretation Negative Section Notes: no tobacco over 15 years Problems Problem Type SNOMED Code ICD Code Onset Dates Problem Status W/U Status Risk Notes Problem 052978361 Colon cancer screening (Z12.11) Active confirmed Problem 582295392 Gastroesophageal reflux disease with esophagitis without hemorrhage (K21.00) Active confirmed Vital Signs Blood pressure diastolic 00 mm Hg 07/28/2024 Height 5 ft 8 in in 07/28/2024 Blood pressure systolic 00 mm Hg 07/28/2024 Weight 181 lbs 07/28/2024 BMI 27.52 kg/m2 07/28/2024 Encounters Encounter Location Date Provider Diagnosis [facility] Out[facility] [address] [place] [id number] 08/31/2024 Anthony San Jr Colon cancer screening Z12.11 and Colon polyps K63.5 [facility] [address] [place] [address] [address] [place] [phone] 07/28/2024 Anthony San Jr Colon cancer screening Z12.11 and Gastroesophageal reflux disease with esophagitis without hemorrhage K21.00 [facility] [address] [place] [address] [place] [phone] 09/08/2024 Anthony San Jr Assessments Encounter Date Diagnosis (ICD Code) Assessment Notes Treatment Notes Treatment Clinical Notes Section Notes 08/31/2024 Colon cancer screening (ICD-10 - Z12.11) 08/31/2024 Colon polyps (ICD-10 - K63.5) 07/28/2024 Colon cancer screening (ICD-10 - Z12.11) Colonoscopy material was printed Currently, he is doing well. Reflux symptoms are under good control with diet. We discussed diet, lifestyle modifications, and weight management regarding the treatment of reflux today. Continue these measures. Is due for followup colonoscopy based on the recommendations at his last examination. We discussed risks and benefits of the procedure today. He understands these and agrees to proceed. This will be scheduled at his convenience. 07/28/2024 Gastroesophageal reflux disease with esophagitis without hemorrhage (ICD-10 - K21.00) Currently, he is doing well. Reflux symptoms are under good control with diet. We discussed diet, lifestyle modifications, and weight management regarding the treatment of reflux today. Continue these measures. Is due for followup colonoscopy based on the recommendations at his last examination. We discussed risks and benefits of the procedure today. He understands these and agrees to proceed. This will be scheduled at his convenience. Plan Of Treatment Future Test Test Name Order Date COLONOSCOPY 07/28/2024 Insurance Providers Payer Name Payer Address Payer Phone Subscriber Number Group Number Insured Name Patient Relationship to Insured Coverage Start Date Coverage End Date [employer] [address] [address] [place] [address] [id number] ROSALIA PERALTA Self - patient is the insured Medical (General) History Medical History History ICD Code Hypertension Psoriatic arthritis Asthma Gastroesophageal reflux disease Depression Elevated blood sugar Neuropathy Surgical History Surgery Date(Month/Year) Back surgery Knee surgery Rib excision, pathology benign
--- OUTSIDE RECORDS SUMMARY | 2025-05-07 08:01 | XMS_ITS | Patient Health Record ---
Author [facility] [place] Address [address] [place] [address] Care Team Providers Care Cad Manager Name Role Phone Pat Morrison MD Primary Care Provider Kelli Tubbs Unavailable [phone] Allergies Allergen (clinical drug ingredient) Drug/Non Drug Allergy documented on EMR Reaction Allergy Type Onset Date Status lisinopril Lisinopril Angiodema Drug Allergy Activ e Reason For Referral No Information Medications Medication SIG (Take, Route, Frequency, Duration) Notes Start Date End Date Status Dupixent Active Carisoprodol 350 MG (Schedule IV Drug) Oral; Duration: 30 Not-Taking Albuterol Sulfate HFA 108 (90 Base) MCG/ACT Inhalation; Duration: 25 Not-Taking Montelukast Sodium 10 MG 1 tablet Orally Once a day Active Mometasone Furoate 0.1 % External; Durat ion: 30 Days Not-Taking Clobetasol Propionate 0.05 % External; Duration: 25 Days Not-Taking traMADol HCl 50 MG Oral; Duration: 3 Days Not-Taking Tacrolimus 0.1 % External; Duration: 30 Days Not-Taking amLODIPine Besylate 5 MG Oral; Duration: 90 Active Dupixent 300 MG/2ML Subcutaneous; Durati on: 28 Not-Taking DULoxetine HCl 60 MG Oral; Duration: 90 Active Qvar RediHaler 80 MCG/ACT Inhalation; Du ration: 90 Not-Taking Gabapentin 300 MG 1 capsule Orally Thr ee times a day; Duration: 90 days Active Metoprolol Tartrate 50 MG Oral; Duration: 90 Active Omeprazole 20 MG 1 capsule 30 minutes before morning meal Orally Once a day; Duration: 30 day(s) Not-Taking Montelukast Sodium 10 MG Oral; Duration: 90 Not-Taking Social History Tobacco Use: Social History Observation Description Date Details (start date - stop date) Never Smoker NA - NA Tobacco use other than smoking: Question Answer Notes Are you an other tobacco user? No Tobacco Control (Standard) Question Answer Notes Tobacco use: Nonsmoker Additional Findings: Tobacco non-user Current no nsmoker AUDIT-C (Standard) Question Answer Notes Did you have a drink containing alcohol in the p ast year? No Points 0 Interpretation Negative Problems Problem Type SNOMED Code ICD Code Onset Dates Problem Status W/U Status Risk Notes Problem Acquired hammer toe of right foot (6396750810372600) Other hammer toe(s) (acquired), right foot (M20.41) Active confirmed Problem Acquired hammer toe of left foot (2591355892474616) Other hammer toe(s) (acquired), left foot (M20.42) Active confirmed Problem Fibromyalgia (376112943) Fibromyalgia (M79.7) Active confirmed Problem Acquired hallux rigidus (3991770) Hallux rigidus of right foot (M20.21) Active confirmed Problem Neuropathy (708710581) Neuropathy (G62.9) Active confirmed Problem Localized, primary osteoarthritis of the ankle and/or foot (840983105) Arthritis of joint of lesser toe, left (M19.072) Active confirmed Problem Localized, primary osteoarthritis of the ankle and/or foot (779838672) Arthritis of joint of lesser toe, right (M19.071) Active confirmed Vital Signs Blood pressure diastolic 80 mm Hg 11/25/2024 Height 5ft 8in in 11/25/2024 Blood pressure systolic 120 mm Hg 11/25/2024 Weight 185 lbs 11/25/2024 BMI 28.13 kg/m2 11/25/2024 Encounters Encounter Location Date Provider Diagnosis [facility] [address] [place] [address] 11/25/2024 Kelli Wise Other hammer toe(s) (acquired), right foot M20.41 ; Neuropathy G62.9 ; Pain in right toe(s) M79.674 ; Pain in left toe(s) M79.675 ; Other hammer toe(s) (acquired), left foot M20.42 ; Hallux rigidus of right foot M20.21 ; Pes planus of left foot M21.42 ; Pes planus of right foot M21.41 and Fibromyalgia M79.7 [facility] [place] [address] [place] [address] 08/31/2024 [facility] [address] [address] 11/25/2024 [facility] [place] [address] [place] [address] 11/25/2024 [facility] Assessments Encounter Date Diagnosis (ICD Code) Assessment Notes Treatment Notes Treatment Clinical Notes Section Notes 11/25/2024 Other hammer toe(s) (acquired), right foot (ICD-10 - M20.41) 11/25/2024 Neuropathy (ICD-10 - G62.9) 11/25/2024 Pain in right toe(s) (ICD-10 - M79.674) 11/25/2024 Pain in left toe(s) (ICD-10 - M79.675) 11/25/2024 Other hammer toe(s) (acquired), left foot (ICD-10 - M20.42) 11/25/2024 Hallux rigidus of right foot (ICD-10 - M20.21) 11/25/2024 Pes planus of left foot (ICD-10 - M21.42) 11/25/2024 Pes planus of right foot (ICD-10 - M21.41) 11/25/2024 Fibromyalgia (ICD-10 - M79.7) Plan Of Treatment Pending Test Test Name Order Date X ray : Foot, left 3V 01/06/2024 X ray : Foot, right 3V 01/06/2024 Insurance Providers Payer Name Payer Address Payer Phone Subscriber Number Group Number Insured Name Patient Relationship to Insured Coverage Start Date Coverage End Date [facility] [address] [address] [place] [address] [phone] [id number] Pablo Scott Self - patient is the insured Medical (General) History Medical History History ICD Code Arthritis asthma Back,Hip,and Knee pain Fibromyalgia High blood pressure Numbness Psoriasis/eczema Reflux Transfusions Joint implants/screws Surgical History Surgery Date(Month/Year) knee recronstruction left 1989 knee surgery Right, multiple Arthroscopi c, arthritis back surgery, L4, L5 2006 Rib Surgery, removal 2004 Hand Surgery Left 2011 right knee replacement 2012 umbilical hernia repair 2018 Cut Mouth eating went for Sutures 03/2020 gallbladder removal 09/12/24
== END 2025-05-06 08:00 | disposition home or self-care (01) ==
LOC: HO.HOSX 07:59
PROVIDERS: Visit Provider Physician Assistant
DX: M25.561 Pain in right knee (principal); Z96.651 Presence of right artificial knee joint
CPT/HCPCS: 73562

== ENCOUNTER 2025-05-06 11:23 | Outpatient (AMB) | payer OTHER, SELFPAY ==
--- NOTE | 2025-05-06 11:40 | A.OFFVIS_ITS ---
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 History of right knee replacement about 10 years ago. He states that he [place] [facility] [place] Patient reports off and on pain for about 6 months. He mentions that his pain is on the medial and lateral aspect of the knee. Patient expresses that his pain is worse when he is bending, walking for more than 30 min and going up and down the stairs. He states that he is taking many medications which does not touch his pain in his knee. 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 Sonia gallagher is a 54-year-old male who presents to the office today for evaluation of right knee pain. He reports he had a right total knee replacement done by Dr. Simental roughly 10 years ago. He reports that over the past 6 months he has had waxing and waning pain in the right knee. He denies any recent injury or trauma to the knee. He reports the pain is located along the medial and lateral aspect of the knee as well as anteriorly. He experiences pain that increases with bending, stair climbing and ambulating for longer than 30 minutes. He has tried many [id number] pain relievers and anti- inflammatories as well as gabapentin for a lumbar spine issue. He reports no relief with any medications. COUNTS INCLUDE 234 BEDS AT THE [facility] Medical History Fibromyalgia Neuropathy GERD (gastroesophageal reflux disease) Depression Asthma Psoriatic arthritis HTN (hypertension) Anemia Diverticulosis Surgical History History of cholecystectomy (~09/12/24) History of excision of mass Hx of knee surgery History of back surgery History of esophagogastroduodenoscopy (EGD) H/O colonoscopy Social History (Updated 05/06/25 @ 11:45 by Nanette Brownlee) Household Members: Significant Other Housing: House Are you a primary healthcare sales representative to a significant other at home: No Do you presently have visiting nurse or other home services: No Alcohol intake: never Patient Tobacco Use Status: Former Tobacco user Tobacco use type: Cigarette Substance Use Type: Marijuana service: No Current occupational status: employed 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 Incision site remains intact. Range of motion 0-90 degrees. [id number]-zg-[id number] effusion. No laxity with varus or valgus stress. NVI. Psych Appearance: grossly normal Mental Status: mental status grossly normal Attitude: cooperative Assessment & Plan Assessment & Plan (1) History of total knee arthroplasty: Code(s): Z96.659 - Presence of unspecified artificial knee joint Category: Surgical (2) Right knee pain: Code(s): M25.561 - Pain in right knee Category: Medical Plan Mr. Sctot this is a 54-year-old male who presents to the office today for evaluation of right knee pain. He reports he had a right total knee replacement done by Dr. Simental roughly 10 years ago. He reports that over the past 6 months he has had waxing and waning pain in the right knee. He denies any recent injury or trauma to the knee. He reports the pain is located along the medial and lateral aspect of the knee as well as anteriorly. He experiences pain that increases with bending, stair climbing and ambulating for longer than 30 minutes. He has tried many zizy-ytg-qjlfnsm pain relievers and anti-infla mmatories as well as gabapentin for a lumbar spine issue. He reports no relief with any medications. While in the office today, x-rays were obtained and reviewed by me, Leona Nguyen PA-C, and reveal possibility of patellar malalignment. I have recommended the patient begin with conservative treatment including physical therapy in which the patient is agreeable to attend. A physical therapy order has been placed while in the office today. He will follow up in 6 weeks with me with Dr. Triana in the office, sooner if needed. Orders: Orders XR knee RT 3V Today M25.569 - Pain in unspecified knee Coding Level of Care Code New Pt Level 3 (09656) Diagnoses History of total knee arthroplasty Z96.659 Right knee pain M25.561
[2025-05-06 11:46] VITALS: BMI 28.1
== END 2025-05-06 12:11 | disposition home or self-care (01) ==
LOC: HO.HOS 11:24
PROVIDERS: PCP Family Medicine; Visit Provider Physician Assistant
DX: M25.561 Pain in right knee (principal); Z96.651 Presence of right artificial knee joint
CPT/HCPCS: 99203

== ENCOUNTER → 2025-05-06 11:32 | Outpatient (BNV) | payer OTHER, SELFPAY | PROVIDERS: Visit Provider Radiology Diagnostic Radiology | DX: Z96.651 Presence of right artificial knee joint (principal) | CPT/HCPCS: 73562 ==